=== PATIENT | female | born 1975 | race African-American/Black ===

== ENCOUNTER 2018-03-03 11:04 | Emergency (ER) | payer BC ==
[~2018-03-03] VITALS: Ht 157.5 cm; Wt 79.8 kg
[2018-03-03 12:20] VITALS: BP 126/87
== END 2018-03-03 13:30 | disposition home or self-care (01) ==
LOC: ER 11:04
DX: J40 Bronchitis, not specified as acute or chronic (principal); E11.9 Type 2 diabetes mellitus without complications; I10 Essential (primary) hypertension; Z90.710 Acquired absence of both cervix and uterus; Z90.89 Acquired absence of other organs
CPT/HCPCS: 82962

== ENCOUNTER 2019-02-11 12:18 | Emergency (ER) | payer BC ==
[~2019-02-11] VITALS: Ht 157.5 cm; Wt 80.7 kg
[2019-02-11 13:10] LABS: Basophils # (auto) 0 uL; Basophils % (auto) 0.7 % (0.0-2.0); Eosinophils # (auto) 0.1 uL; Eosinophils % (auto) 1.1 % (0.0-7.0); Hematocrit 43.7 % (36.0-46.0); Hemoglobin 14.8 g/dL (12.2-16.2); Lymphocytes # (auto) 2.3 uL; Mean Corpuscular Hemoglobin 29.9 pg (28.0-32.0); Mean Corpuscular Hgb Conc. 33.9 g/dL (32.0-36.0); Mean Corpuscular Volume 88.2 fL (80.0-100.0); Monocytes # (auto) 0.3 uL; Monocytes % (auto) 5.2 % (0.0-12.0); Neutrophils # (auto) 2.5 uL; Nucleated Red Blood Cells % 0.1 %; Platelet Count (auto) 302 10^3/uL (140-450); Red Blood Cells 4.96 10^6/uL (4.0-5.20); Red Cell Distribution Width 13.9 % (11.8-14.3); White Blood Cell 5.2 10^3/uL (4.4-10.8)
[2019-02-11 13:26] LABS: Potassium 3.7 mmol/L (3.5-5.1)
[2019-02-11 13:28] LABS: BUN/Creatinine Ratio 14.9
[2019-02-11 13:30] LABS: Bilirubin, Total 0.3 mg/dL (0.2-1.0); Total Protein 8.5 g/dL (6.4-8.2)
[2019-02-11 16:04] VITALS: BP 126/94
== END 2019-02-11 16:15 | disposition home or self-care (01) ==
LOC: ER 12:21
DX: R51 Headache (principal); R42 Dizziness and giddiness; R53.1 Weakness; R20.0 Anesthesia of skin; R53.83 Other fatigue; H57.13 Ocular pain, bilateral
CPT/HCPCS: 36415; 70450; 80053; 85025

== ENCOUNTER 2019-04-27 19:36 | Emergency (ER) | payer BC ==
[~2019-04-27] VITALS: Ht 157.5 cm; Wt 78.9 kg
[2019-04-27 21:12] LABS: Basophils # (auto) 0 uL; Basophils % (auto) 0.3 % (0.0-2.0); Eosinophils # (auto) 0 uL; Eosinophils % (auto) 0.6 % (0.0-7.0); Hematocrit 40.3 % (36.0-46.0); Hemoglobin 13.6 g/dL (12.2-16.2); Lymphocytes % (auto) 22.1 % (10.0-50.0); Mean Corpuscular Hemoglobin 30.3 pg (28.0-32.0); Mean Corpuscular Hgb Conc. 33.8 g/dL (32.0-36.0); Mean Corpuscular Volume 89.4 fL (80.0-100.0); Monocytes # (auto) 0.4 uL; Monocytes % (auto) 8.6 % (0.0-12.0); Neutrophils # (auto) 2.9 uL; Neutrophils % (auto) 68.4 % (37.0-80.0); Nucleated Red Blood Cells % 0.1 %; Platelet Count (auto) 210 10^3/uL (140-450); Red Blood Cells 4.51 10^6/uL (4.0-5.20); Red Cell Distribution Width 13.5 % (11.8-14.3); White Blood Cell 4.3 10^3/uL (4.4-10.8)
[2019-04-27 21:27] LABS: Alanine Aminotransferase 27 U/L (13-56); Albumin 3.6 g/dL (3.4-5.0); Anion Gap 6 (5-15); Aspartate Aminotransferase 23 U/L (15-37); Blood Urea Nitrogen 15 mg/dL (7-18); Calcium 8.6 mg/dL (8.5-10.1); Carbon Dioxide 28 mmol/L (21-32); Chloride 105 mmol/L (98-107); GFR African American 89 mL/min; GFR Non-African American 74 mL/min; Glucose 79 mg/dL (74-106); INR 1.07 (0.9-1.15); Magnesium 2.1 mg/dL (1.6-2.6); Partial Thromboplastin Time 29.6 sec (23.64-32.05); Potassium 3.5 mmol/L (3.5-5.1); Sodium 139 mmol/L (136-145)
[2019-04-27 21:32] LABS: Alkaline Phosphatase 64 U/L (45-117); Bilirubin, Total 0.3 mg/dL (0.2-1.0); Total Protein 8.1 g/dL (6.4-8.2)
[2019-04-27] MEDS ORDERED: IOHEXOL 350 MG/ML 100ML IJ ONE (22:50)
[2019-04-28 00:24] VITALS: BP 128/95
== END 2019-04-28 01:26 | disposition home or self-care (01) ==
LOC: ER 19:41
DX: J06.9 Acute upper respiratory infection, unspecified (principal); E11.9 Type 2 diabetes mellitus without complications; I10 Essential (primary) hypertension
CPT/HCPCS: 36415; 71046; 71275; 80053; 83735; 83880; 84484; 85025; 85379; 85610; 85730; 99284; Q9967

== ENCOUNTER 2020-08-11 09:02 | Inpatient (IN) | payer BC ==
[~2020-08-11] VITALS: Ht 157.5 cm; Wt 81.6 kg
[2020-08-11 09:43] LABS: Basophils # (auto) 0 10 ^3/uL (0-0.2); Basophils % (auto) 0.5 % (0.0-2.0); Eosinophils # (auto) 0 10 ^3/uL (0-0.8); Eosinophils % (auto) 0.2 % (0.0-7.0); Hematocrit 47.2 % (36.0-46.0); Hemoglobin 16.2 g/dL (12.2-16.2); Lymphocytes # (auto) 2.2 10 ^3/uL (0.4-5.4); Lymphocytes % (auto) 25.3 % (10.0-50.0); Mean Corpuscular Hemoglobin 30.8 pg (28.0-32.0); Mean Corpuscular Hgb Conc. 34.3 g/dL (32.0-36.0); Mean Corpuscular Volume 89.9 fL (80.0-100.0); Monocytes # (auto) 0.3 10 ^3/uL (0-1.3); Monocytes % (auto) 3.3 % (0.0-12.0); Neutrophils # (auto) 6.1 10 ^3/uL (1.6-8.6); Neutrophils % (auto) 70.7 % (37.0-80.0); Nucleated Red Blood Cells % 0.3 %; Platelet Count (auto) 262 10^3/uL (140-450); Red Blood Cells 5.25 10^6/uL (4.0-5.20); Red Cell Distribution Width 13.5 % (11.8-14.3); White Blood Cell 8.6 10^3/uL (4.4-10.8)
[2020-08-11 10:01] LABS: Albumin 3.7 g/dL (3.4-5.0); Anion Gap 13 (5-15); Blood Urea Nitrogen 13 mg/dL (7-18); Calcium 9.2 mg/dL (8.5-10.1); Carbon Dioxide 19 mmol/L (21-32); Chloride 104 mmol/L (98-107); Glucose 320 mg/dL (74-106); Potassium 4.2 mmol/L (3.5-5.1); Sodium 136 mmol/L (136-145)
[2020-08-11 10:06] LABS: Alanine Aminotransferase 26 U/L (13-56); Alkaline Phosphatase 79 U/L (45-117); Aspartate Aminotransferase 14 U/L (15-37); BUN/Creatinine Ratio 22.4; Bilirubin, Total 0.5 mg/dL (0.2-1.0); GFR African American 143 mL/min; GFR Non-African American 118 mL/min; Total Protein 7.5 g/dL (6.4-8.2)
[2020-08-11 10:25] LABS: Magnesium 1.8 mg/dL (1.6-2.6)
[2020-08-11] MEDS ORDERED: metroNIDAZOLE 500MG/100ML 100 ML IV ONE (10:30)
[2020-08-11] MEDS ORDERED: SODIUM CHLORIDE 0.9% 1,000 ML IV ONE ×2 (10:30)
[2020-08-11] MEDS ORDERED: PROMETHAZINE HCL 25 MG/ML 1ML IV PRN (11:00)
[2020-08-11] MEDS ORDERED: ACETAMINOPHEN 500 MG TAB PO PRN (11:00)
[2020-08-11] MEDS ORDERED: NITROGLYCERIN 0.4 MG SL TAB SL PRN (11:00)
[2020-08-11] MEDS ORDERED: FAMOTIDINE (10MG/ML) 2ML VL IV SCH (11:00)
[2020-08-11] MEDS ORDERED: MORPHINE SULF INJ 2 MG/ML SYRINGE 1ML IV PRN ×2 (11:00)
[2020-08-11] MEDS ORDERED: DEXTROSE (50%) 50ML SYRG IV PRN (11:00)
[2020-08-11] MEDS: SODIUM CHLORIDE 0.9% 1,000 ML IV SCH ×2 (11:00→22:11)
[2020-08-11] MEDS ORDERED: traMADol HCL 50 MG TAB PO PRN (11:00)
[2020-08-11] MEDS ORDERED: cefTRIAXone 1GM/50ML D5W 50 ML IV ONE (11:00)
[2020-08-11] MEDS ORDERED: TEMAZEPAM 15 MG CAP PO PRN (11:00)
[2020-08-11] MEDS: ACCU-CHEK COMFORT CURVE STRIP VI SCH ×3 (11:30→22:07)
[2020-08-11] MEDS: FAMOTIDINE (10MG/ML) 2ML VL IV SCH ×2 (11:30→22:10)
[2020-08-11] MEDS: InsuLIN REG 1unit/0.01ml Soln (100units/ml) SC SCH ×3 (11:30→22:07)
[2020-08-11 11:37] LABS: Urine Bacteria NONE SEEN /hpf (None Seen); Urine Blood Negative /uL (Negative); Urine Budding Yeast FEW /hpf (None Seen); Urine WBC 1 /hpf (0 - 5)
[2020-08-11 14:15] VITALS: BP 107/79
[2020-08-11 14:20] VITALS: BP 107/79
[2020-08-11] MEDS ORDERED: METF-370 PO (14:50)
[2020-08-11] MEDS ORDERED: LEV100T PO (14:50)
[2020-08-11 16:49] VITALS: BP 114/83
[2020-08-11 22:00] VITALS: BP 132/92
[2020-08-11] MEDS: metroNIDAZOLE 500MG/100ML 100 ML IV SCH (22:11)
[2020-08-11 23:00] LABS: Urine Bacteria NONE SEEN /hpf (None Seen); Urine Blood Negative /uL (Negative); Urine Specific Gravity 1.021 (1.001-1.035); Urine WBC 2 /hpf (0 - 5)
[2020-08-12 05:00] VITALS: BP 108/79
[2020-08-12 06:35] LABS: Basophils # (auto) 0 10 ^3/uL (0-0.2); Basophils % (auto) 0.3 % (0.0-2.0); Eosinophils # (auto) 0 10 ^3/uL (0-0.8); Hematocrit 38.2 % (36.0-46.0); Hemoglobin 13.1 g/dL (12.2-16.2); Lymphocytes # (auto) 1.6 10 ^3/uL (0.4-5.4); Lymphocytes % (auto) 39.4 % (10.0-50.0); Mean Corpuscular Hemoglobin 30.7 pg (28.0-32.0); Mean Corpuscular Hgb Conc. 34.2 g/dL (32.0-36.0); Mean Corpuscular Volume 89.8 fL (80.0-100.0); Monocytes # (auto) 0.2 10 ^3/uL (0-1.3); Monocytes % (auto) 5.9 % (0.0-12.0); Neutrophils # (auto) 2.2 10 ^3/uL (1.6-8.6); Neutrophils % (auto) 53.4 % (37.0-80.0); Nucleated Red Blood Cells % 0.1 %; Platelet Count (auto) 213 10^3/uL (140-450); Red Blood Cells 4.26 10^6/uL (4.0-5.20); Red Cell Distribution Width 13.3 % (11.8-14.3); White Blood Cell 4.1 10^3/uL (4.4-10.8)
[2020-08-12] MEDS: ACCU-CHEK COMFORT CURVE STRIP VI SCH ×4 (06:43→22:10)
[2020-08-12] MEDS: metroNIDAZOLE 500MG/100ML 100 ML IV SCH ×3 (06:43→22:12)
[2020-08-12] MEDS: SODIUM CHLORIDE 0.9% 1,000 ML IV SCH ×2 (06:43→18:50)
[2020-08-12] MEDS: InsuLIN REG 1unit/0.01ml Soln (100units/ml) SC SCH ×4 (06:45→22:10)
[2020-08-12 06:49] LABS: Potassium 3.8 mmol/L (3.5-5.1)
[2020-08-12 06:59] LABS: Albumin 3.1 g/dL (3.4-5.0); BUN/Creatinine Ratio 8.3; Bilirubin, Total 0.5 mg/dL (0.2-1.0); Calcium 8.3 mg/dL (8.5-10.1); Total Protein 6.5 g/dL (6.4-8.2)
[2020-08-12 08:33] VITALS: BP 138/100
[2020-08-12] MEDS: cefTRIAXone 1GM/50ML D5W 50 ML IV SCH (09:13)
[2020-08-12] MEDS: FAMOTIDINE (10MG/ML) 2ML VL IV SCH ×2 (10:18→22:12)
[2020-08-12 12:38] VITALS: BP 147/104
[2020-08-12] MEDS ORDERED: HYOSCYAMINE SULF 0.125 MG ODT TAB PO PRN (12:45)
[2020-08-12 16:40] VITALS: BP 127/92
[2020-08-12] MEDS ORDERED: LEVOTHYROXINE SODIUM 100 MCG TAB PO ONE (17:00)
[2020-08-12 22:00] VITALS: BP 133/95
[2020-08-12] MEDS: INSULIN LANTUS (GLARGINE) 1 /0.01ml (100units/ml) SC SCH (22:10)
[2020-08-13 05:00] VITALS: BP 123/81
[2020-08-13] MEDS: SODIUM CHLORIDE 0.9% 1,000 ML IV SCH (06:02)
[2020-08-13] MEDS: metroNIDAZOLE 500MG/100ML 100 ML IV SCH ×3 (06:02→21:40)
[2020-08-13] MEDS: LEVOTHYROXINE SODIUM 100 MCG TAB PO SCH (06:35)
[2020-08-13] MEDS: ACCU-CHEK COMFORT CURVE STRIP VI SCH ×4 (06:35→21:22)
[2020-08-13] MEDS: InsuLIN REG 1unit/0.01ml Soln (100units/ml) SC SCH ×4 (06:37→21:39)
[2020-08-13 09:00] VITALS: BP 119/91
[2020-08-13] MEDS: FAMOTIDINE (10MG/ML) 2ML VL IV SCH ×2 (11:12→21:40)
[2020-08-13] MEDS: cefTRIAXone 1GM/50ML D5W 50 ML IV SCH (11:13)
[2020-08-13 13:00] VITALS: BP 145/103
[2020-08-13 22:00] VITALS: BP 120/83
[2020-08-13] MEDS: INSULIN LANTUS (GLARGINE) 1 /0.01ml (100units/ml) SC SCH (22:18)
[2020-08-14 05:00] VITALS: BP 123/91
[2020-08-14] MEDS: LEVOTHYROXINE SODIUM 100 MCG TAB PO SCH (06:25)
[2020-08-14] MEDS: metroNIDAZOLE 500MG/100ML 100 ML IV SCH (06:25)
[2020-08-14] MEDS: ACCU-CHEK COMFORT CURVE STRIP VI SCH ×2 (06:42→11:31)
[2020-08-14] MEDS: InsuLIN REG 1unit/0.01ml Soln (100units/ml) SC SCH ×2 (06:43→11:31)
[2020-08-14 09:14] VITALS: BP 132/98
[2020-08-14] MEDS: FAMOTIDINE (10MG/ML) 2ML VL IV SCH (09:39)
[2020-08-14] MEDS: cefTRIAXone 1GM/50ML D5W 50 ML IV SCH (09:39)
[2020-08-14 12:49] VITALS: BP 133/96
== END 2020-08-14 16:48 | disposition home or self-care (01) | DRG 392 ==
LOC: ER 09:02 → TELE 09:03 → TELE-WESTW 14:06
PROVIDERS: ADMIT Internal Medicine; ATTEND Internal Medicine
DX: K52.9 Noninfective gastroenteritis and colitis, unspecified (principal); Z20.822 Contact with and (suspected) exposure to COVID-19; E66.9 Obesity, unspecified; E03.9 Hypothyroidism, unspecified; E11.65 Type 2 diabetes mellitus with hyperglycemia; I10 Essential (primary) hypertension; Z90.710 Acquired absence of both cervix and uterus; Z68.32 Body mass index [BMI] 32.0-32.9, adult; Z90.49 Acquired absence of other specified parts of digestive tract; Z79.899 Other long term (current) drug therapy
CPT/HCPCS: 36415; 74176; 80053; 81001; 82010; 82150; 82962; 83036; 83605; 83690; 83735; 84484; 85025; 87040; 87045; 87086; 87426; 87427; 87493; 93005; 96365; 96375; G0378; J0696; J1815; J3490

== ENCOUNTER → 2020-09-07 | Outpatient (CLI) | payer BC ==
[~2020-09-07] MED LIST: LEV100T PO; METF-370 PO
[2020-09-07 17:07] LABS: Cholesterol 97 mg/dL (< 200)
[2020-09-07 17:09] LABS: HDL Cholesterol 56 mg/dL (40-59); LDL Cholesterol 30 mg/dL (< 100); Triglycerides 106 mg/dL (< 150)
== END | disposition home or self-care (01) ==
LOC: LAB 16:18
PROVIDERS: ATTEND Internal Medicine
DX: E11.9 Type 2 diabetes mellitus without complications (principal)
CPT/HCPCS: 36415; 80061; 82043

== ENCOUNTER → 2020-09-21 | Outpatient (CLI) | payer BC ==
[2020-09-21 10:46] LABS: Basophils # (auto) 0 10 ^3/uL (0-0.2); Basophils % (auto) 0.4 % (0.0-2.0); Eosinophils # (auto) 0 10 ^3/uL (0-0.8); Eosinophils % (auto) 0.6 % (0.0-7.0); Hematocrit 42.1 % (36.0-46.0); Hemoglobin 14.6 g/dL (12.2-16.2); Lymphocytes # (auto) 1.8 10 ^3/uL (0.4-5.4); Lymphocytes % (auto) 35.5 % (10.0-50.0); Mean Corpuscular Hemoglobin 31.2 pg (28.0-32.0); Mean Corpuscular Hgb Conc. 34.6 g/dL (32.0-36.0); Mean Corpuscular Volume 90.1 fL (80.0-100.0); Monocytes # (auto) 0.3 10 ^3/uL (0-1.3); Monocytes % (auto) 5.2 % (0.0-12.0); Neutrophils % (auto) 58.3 % (37.0-80.0); Nucleated Red Blood Cells % 0.1 %; Platelet Count (auto) 260 10^3/uL (140-450); Red Blood Cells 4.67 10^6/uL (4.0-5.20); Red Cell Distribution Width 13.1 % (11.8-14.3); White Blood Cell 5.1 10^3/uL (4.4-10.8)
[2020-09-21 11:32] LABS: Albumin 3.8 g/dL (3.4-5.0); Calcium 9.2 mg/dL (8.5-10.1); Potassium 4.1 mmol/L (3.5-5.1)
[2020-09-21 11:35] LABS: BUN/Creatinine Ratio 18.3; Bilirubin, Total 0.4 mg/dL (0.2-1.0); Total Protein 7.9 g/dL (6.4-8.2)
== END | disposition home or self-care (01) ==
LOC: LAB 10:17
DX: E11.9 Type 2 diabetes mellitus without complications (principal); E03.9 Hypothyroidism, unspecified
CPT/HCPCS: 36415; 80053; 84439; 84443; 84479; 85025

== ENCOUNTER → 2020-09-21 | Outpatient (CLI) | payer BC | END | disposition home or self-care (01) | LOC: XY 08:35 | PROVIDERS: ATTEND Internal Medicine | DX: G45.9 Transient cerebral ischemic attack, unspecified (principal) | CPT/HCPCS: 93886 ==

== ENCOUNTER → 2020-09-27 | Outpatient (CLI) | payer BC | END | disposition home or self-care (01) | LOC: XYW 08:22 | PROVIDERS: ATTEND Internal Medicine | DX: I07.1 Rheumatic tricuspid insufficiency (principal); G45.9 Transient cerebral ischemic attack, unspecified | CPT/HCPCS: 93306 ==

== ENCOUNTER 2021-07-12 17:00 | Emergency (ER) | payer BC ==
[~2021-07-12] VITALS: Ht 157.5 cm; Wt 75.3 kg
[2021-07-12 18:44] LABS: Basophils # (auto) 0.1 10 ^3/uL (0-0.2); Basophils % (auto) 0.9 % (0.0-2.0); Eosinophils # (auto) 0 10 ^3/uL (0-0.8); Eosinophils % (auto) 0.5 % (0.0-7.0); Hematocrit 42.6 % (36.0-46.0); Hemoglobin 14.7 g/dL (12.2-16.2); Lymphocytes # (auto) 2.5 10 ^3/uL (0.4-5.4); Lymphocytes % (auto) 37.5 % (10.0-50.0); Mean Corpuscular Hemoglobin 30.2 pg (28.0-32.0); Mean Corpuscular Hgb Conc. 34.5 g/dL (32.0-36.0); Mean Corpuscular Volume 87.5 fL (80.0-100.0); Monocytes # (auto) 0.4 10 ^3/uL (0-1.3); Monocytes % (auto) 5.4 % (0.0-12.0); Neutrophils # (auto) 3.7 10 ^3/uL (1.6-8.6); Neutrophils % (auto) 55.7 % (37.0-80.0); Nucleated Red Blood Cells % 0.1 %; Red Blood Cells 4.87 10^6/uL (4.0-5.20); Red Cell Distribution Width 13.6 % (11.8-14.3); White Blood Cell 6.7 10^3/uL (4.4-10.8)
[2021-07-12 19:08] LABS: Albumin 4.2 g/dL (3.4-5.0); Calcium 9.6 mg/dL (8.5-10.1); Potassium 3.9 mmol/L (3.5-5.1)
[2021-07-12 19:13] LABS: Bilirubin, Total 0.4 mg/dL (0.2-1.0); Total Protein 8.2 g/dL (6.4-8.2)
[2021-07-12] MEDS ORDERED: IOHEXOL 350 MG/ML 100ML IJ ONE (19:15)
[2021-07-12 23:30] VITALS: BP 114/87
== END 2021-07-13 00:49 | disposition home or self-care (01) ==
LOC: ER 17:00
DX: R07.89 Other chest pain (principal); R06.09 Other forms of dyspnea
CPT/HCPCS: 36415; 71275; 80053; 83880; 84484; 85025; 93005; 99285; Q9967

== ENCOUNTER → 2021-07-16 | Outpatient (CLI) | payer BC ==
[2021-07-16 10:49] LABS: Free T3 2.47 pg/mL (2.3-4.2); Free T4 (Free Thyroxine) 1.38 ng/dL (0.89-1.76)
== END | disposition home or self-care (01) ==
LOC: LAB 09:02
PROVIDERS: ATTEND Internal Medicine Endocrinology, Diabetes & Metabolism
DX: E03.9 Hypothyroidism, unspecified (principal)
CPT/HCPCS: 36415; 82274; 84439; 84443; 84481

== ENCOUNTER → 2021-07-23 | Outpatient (CLI) | payer BC ==
[2021-07-23 06:36] LABS: Basophils # (auto) 0 10 ^3/uL (0-0.2); Basophils % (auto) 0.5 % (0.0-2.0); Eosinophils # (auto) 0.1 10 ^3/uL (0-0.8); Eosinophils % (auto) 1.1 % (0.0-7.0); Hematocrit 40.7 % (36.0-46.0); Lymphocytes # (auto) 2.5 10 ^3/uL (0.4-5.4); Lymphocytes % (auto) 44.5 % (10.0-50.0); Mean Corpuscular Hemoglobin 30.2 pg (28.0-32.0); Mean Corpuscular Hgb Conc. 34.4 g/dL (32.0-36.0); Mean Corpuscular Volume 87.8 fL (80.0-100.0); Monocytes # (auto) 0.3 10 ^3/uL (0-1.3); Monocytes % (auto) 5.1 % (0.0-12.0); Neutrophils # (auto) 2.8 10 ^3/uL (1.6-8.6); Neutrophils % (auto) 48.8 % (37.0-80.0); Nucleated Red Blood Cells % 0.2 %; Red Blood Cells 4.64 10^6/uL (4.0-5.20); Red Cell Distribution Width 13.2 % (11.8-14.3); White Blood Cell 5.7 10^3/uL (4.4-10.8)
[2021-07-23 06:54] LABS: Albumin 3.8 g/dL (3.4-5.0); Calcium 9.7 mg/dL (8.5-10.1); Potassium 4.2 mmol/L (3.5-5.1)
[2021-07-23 06:57] LABS: BUN/Creatinine Ratio 21.3; Bilirubin, Total 0.4 mg/dL (0.2-1.0); CRP High Sensitivity 0.24 mg/dL (< 0.3); Total Protein 7.5 g/dL (6.4-8.2)
== END ==
LOC: LAB 06:07
PROVIDERS: ATTEND Internal Medicine
DX: E11.9 Type 2 diabetes mellitus without complications (principal); Z00.00 Encounter for general adult medical examination without abnormal findings
CPT/HCPCS: 36415; 80053; 80061; 82043; 83036; 84443; 84481; 85025; 85652; 86141

== ENCOUNTER 2021-08-08 11:01 | Emergency (ER) | payer BC ==
[~2021-08-08] VITALS: Ht 157.5 cm; Wt 76.7 kg
[2021-08-08 11:54] LABS: Basophils # (auto) 0 10 ^3/uL (0-0.2); Basophils % (auto) 0.5 % (0.0-2.0); Eosinophils # (auto) 0 10 ^3/uL (0-0.8); Eosinophils % (auto) 1.1 % (0.0-7.0); Hematocrit 42.1 % (36.0-46.0); Hemoglobin 14.4 g/dL (12.2-16.2); Lymphocytes # (auto) 1.9 10 ^3/uL (0.4-5.4); Lymphocytes % (auto) 45.6 % (10.0-50.0); Mean Corpuscular Hemoglobin 30.2 pg (28.0-32.0); Mean Corpuscular Hgb Conc. 34.2 g/dL (32.0-36.0); Mean Corpuscular Volume 88.4 fL (80.0-100.0); Monocytes # (auto) 0.2 10 ^3/uL (0-1.3); Monocytes % (auto) 5.8 % (0.0-12.0); Nucleated Red Blood Cells % 0.3 %; Red Blood Cells 4.77 10^6/uL (4.0-5.20); Red Cell Distribution Width 13.3 % (11.8-14.3); White Blood Cell 4.2 10^3/uL (4.4-10.8)
[2021-08-08 12:21] LABS: Albumin 3.7 g/dL (3.4-5.0); BUN/Creatinine Ratio 11.6; Potassium 4.1 mmol/L (3.5-5.1)
[2021-08-08 12:24] LABS: Bilirubin, Total 0.7 mg/dL (0.2-1.0); Total Protein 7.5 g/dL (6.4-8.2)
[2021-08-08 16:38] LABS: Urine Bacteria FEW /hpf (None Seen); Urine Blood Negative /uL (Negative); Urine Mucus FEW (None Seen); Urine Specific Gravity 1.032 (1.001-1.035); Urine WBC 81 /hpf (0 - 5)
[2021-08-08] MEDS ORDERED: NITR-87 PO ×2 (16:55→18:24)
[2021-08-08 17:22] VITALS: BP 124/71
== END 2021-08-08 17:26 | disposition home or self-care (01) ==
LOC: ER 11:01
DX: E11.65 Type 2 diabetes mellitus with hyperglycemia (principal); I10 Essential (primary) hypertension; Z90.89 Acquired absence of other organs; Z90.49 Acquired absence of other specified parts of digestive tract
CPT/HCPCS: 36415; 80053; 81001; 81025; 85025; 93005

== ENCOUNTER 2022-01-12 12:42 | Emergency (ER) | payer BC ==
[~2022-01-12] VITALS: Ht 157.5 cm; Wt 75.0 kg
[~2022-01-12 12:42] MED LIST changes: +NITR-87 PO
[2022-01-12] MEDS ORDERED: KETOROLAC TROMETH 60MG/2ML VIAL IM ONE (13:15)
[2022-01-12 13:56] VITALS: BP 120/90
[2022-01-12] MEDS ORDERED: TRAM-297 PO (14:31)
[2022-01-12] MEDS ORDERED: PRED20TA2 PO (14:31)
== END 2022-01-12 14:43 | disposition home or self-care (01) ==
LOC: ER 12:42
DX: M54.31 Sciatica, right side (principal); E11.9 Type 2 diabetes mellitus without complications; I10 Essential (primary) hypertension; Z90.49 Acquired absence of other specified parts of digestive tract; Z90.89 Acquired absence of other organs; Z90.710 Acquired absence of both cervix and uterus
CPT/HCPCS: 93971; 96372; 99284; J1885

== ENCOUNTER → 2022-02-13 | Outpatient (CLI) | payer BC ==
[~2022-02-13] MED LIST changes: +PRED20TA2 PO; +TRAM-297 PO
[2022-02-13 10:53] LABS: Cholesterol 92 mg/dL (< 200); HDL Cholesterol 60 mg/dL (40-59); LDL Cholesterol 30 mg/dL (< 100); Triglycerides 76 mg/dL (< 150)
== END | disposition home or self-care (01) ==
LOC: LAB 09:46
PROVIDERS: ATTEND Internal Medicine
DX: E11.9 Type 2 diabetes mellitus without complications (principal); E78.5 Hyperlipidemia, unspecified
CPT/HCPCS: 36415; 80061; 83036

== ENCOUNTER → 2022-10-09 | Outpatient (CLI) | payer BC ==
[~2022-10-09] MED LIST changes: +CIPR-173 PO; +METR500T PO
[2022-10-09 08:44] LABS: Urine Bacteria FEW /hpf (None Seen); Urine Blood Negative /uL (Negative); Urine Mucus FEW (None Seen); Urine Specific Gravity 1.046 (1.001-1.035); Urine WBC 4 /hpf (0 - 5)
[2022-10-09 08:45] LABS: Basophils # (auto) 0 10 ^3/uL (0-0.2); Basophils % (auto) 0.7 % (0.0-2.0); Eosinophils # (auto) 0 10 ^3/uL (0-0.8); Eosinophils % (auto) 1.1 % (0.0-7.0); Hematocrit 45.8 % (36.0-46.0); Hemoglobin 15.4 g/dL (12.2-16.2); Lymphocytes # (auto) 2.3 10 ^3/uL (0.4-5.4); Lymphocytes % (auto) 53.3 % (10.0-50.0); Mean Corpuscular Hemoglobin 30.7 pg (28.0-32.0); Mean Corpuscular Hgb Conc. 33.6 g/dL (32.0-36.0); Mean Corpuscular Volume 91.5 fL (80.0-100.0); Monocytes # (auto) 0.3 10 ^3/uL (0-1.3); Monocytes % (auto) 7.2 % (0.0-12.0); Neutrophils # (auto) 1.6 10 ^3/uL (1.6-8.6); Neutrophils % (auto) 37.7 % (37.0-80.0); Nucleated Red Blood Cells % 0.1 %; Red Blood Cells 5.01 10^6/uL (4.0-5.20); Red Cell Distribution Width 13.2 % (11.8-14.3); White Blood Cell 4.4 10^3/uL (4.4-10.8)
[2022-10-09 09:07] LABS: Albumin 4.2 g/dL (3.4-5.0); Calcium 9.1 mg/dL (8.5-10.1); Potassium 3.7 mmol/L (3.5-5.1)
[2022-10-09 09:11] LABS: BUN/Creatinine Ratio 18.4 (10.0-20.0); Bilirubin, Total 0.5 mg/dL (0.2-1.0); Total Protein 8.1 g/dL (6.4-8.2)
== END | disposition home or self-care (01) ==
LOC: LAB 08:27
PROVIDERS: ATTEND Internal Medicine
DX: I10 Essential (primary) hypertension (principal); E11.9 Type 2 diabetes mellitus without complications; E78.00 Pure hypercholesterolemia, unspecified
CPT/HCPCS: 36415; 80053; 80061; 81001; 83036; 84443; 85025

== ENCOUNTER → 2023-04-24 | Outpatient (CLI) | payer BC | END | disposition home or self-care (01) | LOC: LAB 15:38 | PROVIDERS: ATTEND Internal Medicine | DX: E11.9 Type 2 diabetes mellitus without complications (principal); E78.5 Hyperlipidemia, unspecified | CPT/HCPCS: 36415; 83036; 84443 ==

== ENCOUNTER → 2023-05-26 | Outpatient (CLI) | payer OTHER | END | disposition home or self-care (01) | LOC: XYW 12:30 | PROVIDERS: ATTEND Internal Medicine | DX: I07.1 Rheumatic tricuspid insufficiency (principal); R00.2 Palpitations | CPT/HCPCS: 93306 ==

== ENCOUNTER → 2023-06-09 | Outpatient (CLI) | payer OTHER ==
[2023-06-09 16:22] LABS: Erythrocyte Sedimentation Rate 13 mm/hr (0-20)
== END | disposition home or self-care (01) ==
LOC: LAB 15:22
PROVIDERS: ATTEND Internal Medicine
DX: E11.9 Type 2 diabetes mellitus without complications (principal); E03.9 Hypothyroidism, unspecified; M54.2 Cervicalgia; M25.511 Pain in right shoulder; R00.2 Palpitations
CPT/HCPCS: 36415; 82550; 83036; 84443; 85652

== ENCOUNTER → 2023-12-31 | Outpatient (CLI) | payer OTHER ==
[~2023-12-31] MED LIST changes: -LEV100T PO; +LEVO-849 PO
== END | disposition home or self-care (01) ==
LOC: LAB 06:24
PROVIDERS: ATTEND Internal Medicine
DX: N39.0 Urinary tract infection, site not specified (principal)
CPT/HCPCS: 87086

== ENCOUNTER 2024-04-25 12:59 | Emergency (ER) | payer OTHER ==
[~2024-04-25] VITALS: Ht 152.4 cm; Wt 66.5 kg
--- NOTE | 2024-04-25 13:15 | ED.PDOC ---
History of Present Illness HPI Comments cough, congestion, body aches for 1 day Time Seen by MD: 13:07 Primary Care Provider: DENIES Allergies: Coded Allergies: NO KNOWN ALLERGIES (Unverified , 03/03/18) Home Meds Active Scripts Ciprofloxacin Hcl (Cipro) 500 Mg Tab, 500 MG PO BID for 7 Days, #14 TAB Prov:MAMTA GUAJARDO MD 04/02/22 Metronidazole (Flagyl) 500 Mg Tab, 500 MG PO BID for 7 Days, #14 TAB Prov:MAMTA GUAJARDO MD 04/02/22 Tramadol Hcl (Ultram) 50 Mg Tab, 1 TAB PO BID, #20 TAB Prov:CHRIS SANDOVAL 01/12/22 Prednisone (Prednisone) 20 Mg Tab, 40 MG PO DAILY, #20 MG Prov:CHRIS SANDOVAL 01/12/22 Nitrofurantoin Monohydrate Mac (Macrobid) 100 Mg Cap, 100 MG PO BID for 7 Days, #14 CAP Prov:MAMTA GUAJARDO MD 08/08/21 Nitrofurantoin Monohydrate Mac (Macrobid) 100 Mg Cap, 100 MG PO BID for 7 Days, #14 CAP Prov:JACQUI RANGEL DO 08/08/21 Reported Medications Levothyroxine Sodium (SYNTHROID TABLET) 100 Mcg Tb, 1 TAB PO DAILY, #30 TAB 5 Refills 08/11/20 Metformin Hydrochloride (Metformin Hcl) 500 Mg Tab, 500 MG PO DAILY for 30 Days, MG 08/11/20 Information Source: Patient, Spouse Mode of Arrival: Ambulatory Severity: Mild Timing: Days Duration: Since onset Past Medical History PAST MEDICAL HISTORY: DM, High Lipids, HTN, Thyroid Surgical History: Cholecystectomy, , Hysterectomy, Thyroidectomy CHORUS DANCER History: No Pertinent CHORUS DANCER History Family History Family History: Reviewed,noncontributory to illness Social History Smoker: Non-Smoker Alcohol: Denies ETOH Use Drugs: Denies Drug Use Lives In: Home Constitutional: denies: chills, diaphoresis, fatigue, fever, malaise, sweats, weakness, others EENTM: reports: nose congestion; denies: blurred vision, double vision, ear bleeding, ear discharge, ear drainage, ear pain, ear ringing, eye pain, eye redness, hearing loss, mouth pain, mouth swelling, nasal discharge, nose bleeding, nose pain, photophobia, tearing, throat pain, throat swelling, voice changes, others Respiratory: reports: cough; denies: hemoptysis, orthopnea, SOB at rest, shortness of breath, SOB with excertion, stridor, wheezing, others Cardiovascular: denies: chest pain, dizzy spells, diaphoresis, Dyspnea on exertion, edema, irregular heart beat, left arm pain, lightheadedness, palpitations, PND, syncope, others Gastrointestinal: denies: abdomen distended, abdominal pain, blood streaked bowels, constipated, diarrhea, dysphagia, difficulty swallowing, hematemesis, melena, nausea, poor appetite, poor fluid intake, rectal bleeding, rectal pain, vomiting, others Genitourinary: denies: abnormal vagina bleeding, burning, dyspareunia, dysuria, flank pain, frequency, hematuria, incontinence, pain, , vagina discharge, urgency, others Neurological: denies: dizziness, fainting, headache, left sided numbness, left sided weakness, numbness, paresthesia, pre-existing deficit, right sided numbness, right sided weakness, seizure, speech problems, tingling, tremors, weakness, others Musculoskeletal: reports: muscle pain; denies: back pain, gout, joint pain, j oint swelling, muscle stiffness, neck pain, others Integumetry: denies: bruises, change in color, change in hair/nails, dryness, laceration, lesions, lumps, rash, wounds, others Allergic/Immunocompromised: denies: Difficulty Healing, Frequent Infections, Hives, Itching, others Hematologic/Lymphatic: denies: anemia, blood clots, easy bleeding, easy bruising, swollen glands, others Endocrine: denies: excessive hunger, excessive sweating, excessive thirst, excessive urination, flushing, intolerance to cold, intolerance to heat, unexplained weight gain, unexplained weight loss, others Psychiatric: denies: anxiety, bipolar disorder, depression, hopeless, panic disorder, schizophrenia, sleepless, suicidal, others All Other Systems: Reviewed and Negative Physical Exam General Appearance: No Apparent Distress, Normal HEENT: Normal ENT Inspection, Pharynx Normal, TMs Normal Neck: Full Range of Motion, Non-Tender, Normal, Normal Inspection Respiratory: Chest Non-Tender, Lungs Clear, No Accessory Muscle Use, No Respiratory Distress, Normal Breath Sounds Cardiovascular: No Edema, No JVD, No Murmur, No Gallop, Normal Peripheral Pulses, Regular Rate/Rhythm Breast Exam: Deferred Gastrointestinal: No Organomegaly, Non Tender, No Pulsatile Mass, Normal Bowel Sounds, Soft Genitalia: Deferred Pelvic: Deferred Rectal: Deferred Extremities: No calf tenderness, Normal capillary refill, Normal inspection, Normal range of motion, Non-tender, No pedal edema Musculoskeletal : Apperance: Normal Neurologic: Alert, laborer chemical processing II-XII nml as Tested, No Motor Deficits, Normal Affect, Normal Mood, No Sensory Deficits Cerebellar Function: Normal Reflexes: Normal Skin: Dry, Normal Color, Warm Lymphatic: No Adenopathy Was a procedure done? Was a procedure done?: No Differential Dx Considerations may include: covid, influenza, pneumonia, bronchitis, other viral uri X-Ray, Labs, Meds, VS Vital Signs Date Time Temp Pulse Resp B/P (MAP) Pulse Ox O2 Delivery O2 Flow Rate FiO2 04/25/24 13:17 98.0 84 17 115/66 (82) 98 Lab Test 04/25/24 13:39 Range/Units Influenza Type A Antigen Negative Negative Influenza Type B Antigen Negative Negative SARS-CoV-2 Antigen (Rapid) Negative NEGATIVE Time of 1ST Reevaluation: 14:12 Reevaluation 1ST: Improved Patient Education/Counseling: Diagnosis, Treatment, Prognosis, Need For Follow Up Family Education/Counseling: Diagnosis, Treatment, Prognosis, Need For Follow Up Departure 1 Departure Time of Disposition: 14:12 Impression: Primary Impression: Viral syndrome Disposition: 01 HOME / SELF CARE / HOMELESS Condition: Good Discharged With: Spouse Critical Care Note Critical Care Time?: No Stability Stability form required: KT Whitmore MD Apr 25, 2024 13:15
[2024-04-25 14:10] LABS: COVID19 ANTIGEN SOFIA FIA NEGATIVE (NEGATIVE)
[2024-04-25 14:11] LABS: Rapid Influenza A Negative (Negative); Rapid Influenza B Negative (Negative)
[2024-04-25 14:43] VITALS: BP 116/66; PULSE 66; RESP 16; TEMP 98.6; O2SAT 96
== END 2024-04-25 14:45 | disposition home or self-care (01) ==
LOC: ER 12:59
DX: B34.9 Viral infection, unspecified (principal); E11.9 Type 2 diabetes mellitus without complications; I10 Essential (primary) hypertension; Z79.52 Long term (current) use of systemic steroids; Z79.84 Long term (current) use of oral hypoglycemic drugs; Z79.890 Hormone replacement therapy; Z90.49 Acquired absence of other specified parts of digestive tract; Z90.710 Acquired absence of both cervix and uterus; Z20.822 Contact with and (suspected) exposure to COVID-19
CPT/HCPCS: 36415; 87426; 87804

== ENCOUNTER 2024-05-05 20:46 | Emergency (ER) | payer OTHER ==
[~2024-05-05] VITALS: Ht 157.5 cm; Wt 63.6 kg
[2024-05-05] MEDS ORDERED: HYDROmorphone HCL 2 MG/ML VL/or syr IV ONE (21:00)
[2024-05-05] MEDS: ONDANSETRON HCL 4 MG/2 ML VIAL IV ONE (21:00)
--- NOTE | 2024-05-05 21:04 | ED.PDOC ---
GI ASSESSMENT HPI Comments 49 year old female brought in by EMS presents to the ED with a chief complaint of diffused abdominal pain onset yesterday. Patient states se was nathalia in this ED about 1 week ago, her symptoms had improved. Last night, patient began experiencing diffused abdominal pain, nausea, vomiting, diarrhea that worsens with movement. PMHx of HTN, DM, HLD. Denies chest pain, shortness of breath, constipation, dizziness, headache, blurry vision. No other symptoms or modifying factors present at this time. Chief Complaint: Abdominal Pain Time Seen by MD: 20:54 Primary Care Provider: gómez Reviewed Notes: Medications, Allergies Allergies: Coded Allergies: NO KNOWN ALLERGIES (Unverified , 03/03/18) Home Meds Active Scripts Dicyclomine Hcl (BENTYL CAPSULE) 10 Mg Cp, 1 CAP PO Q6HPRN PRN for 7 Days, #30 CAP 3 Refills Prov:MIN LOPES MD 05/05/24 Loperamide Hcl (Imodium) 2 Mg Cp, 2 MG PO Q4HP PRN for 7 Days, #30 CAP Prov:MIN LOPES MD 05/05/24 Ondansetron HCl (Ondansetron Hydrochloride) 8 Mg Tab, 8 MG PO Q6HP PRN for 7 Days, #28 TAB Prov:MIN LOPES MD 05/05/24 Ciprofloxacin Hcl (Cipro) 500 Mg Tab, 500 MG PO BID for 7 Days, #14 TAB Prov:MAMTA GUAJARDO MD 04/02/22 Metronidazole (Flagyl) 500 Mg Tab, 500 MG PO BID for 7 Days, #14 TAB Prov:MAMTA GUAJARDO MD 04/02/22 Tramadol Hcl (Ultram) 50 Mg Tab, 1 TAB PO BID, #20 TAB Prov:CHRIS SANDOVAL 01/12/22 Prednisone (Prednisone) 20 Mg Tab, 40 MG PO DAILY, #20 MG Prov:CHRIS SANDOVAL 01/12/22 Nitrofurantoin Monohydrate Mac (Macrobid) 100 Mg Cap, 100 MG PO BID for 7 Days, #14 CAP Prov:MAMTA GUAJARDO MD 08/08/21 Nitrofurantoin Monohydrate Mac (Macrobid) 100 Mg Cap, 100 MG PO BID for 7 Days, #14 CAP Prov:JACQUI RANGEL DO 08/08/21 Reported Medications Levothyroxine Sodium (SYNTHROID TABLET) 100 Mcg Tb, 1 TAB PO DAILY, #30 TAB 5 Refills 08/11/20 Metformin Hydrochloride (Metformin Hcl) 500 Mg Tab, 500 MG PO DAILY for 30 Days, MG 08/11/20 Information Source: Patient, Emergency Med Personnel Mode of Arrival: EMS Timing: Days Duration: Since onset Prehospital treatment: None Quality: Sharp Severity: Moderate Recent: None Recent Hx of: None Pain Location: Diffuse Modifying Factors: Movement Associated sign and symptoms: Nausea, Vomiting, Diarrhea, Abdominal Pain Past Medical History PAST MEDICAL HISTORY: DM, High Lipids, HTN, Thyroid Surgical History: Cholecystectomy, , Hysterectomy, Thyroidectomy FINANCIAL SERVICE PROFESSIONAL History: No Pertinent FINANCIAL SERVICE PROFESSIONAL History Family History Family History: Reviewed,noncontributory to illness Social History Smoker: Non-Smoker Alcohol: Denies ETOH Use Drugs: Denies Drug Use Lives In: Home Constitutional: denies: chills, diaphoresis, fatigue, fever, malaise, sweats, weakness, others EENTM: denies: blurred vision, double vision, ear bleeding, ear discharge, ear drainage, ear pain, ear ringing, eye pain, eye redness, hearing loss, mouth pain, mouth swelling, nasal discharge, nose bleeding, nose congestion, nose pain, photophobia, tearing, throat pain, throat swelling, voice changes, others Respiratory: denies: cough, hemoptysis, orthopnea, SOB at rest, shortness of breath, SOB with excertion, stridor, wheezing, others Cardiovascular: denies: chest pain, dizzy spells, diaphoresis, Dyspnea on exertion, edema, irregular heart beat, left arm pain, lightheadedness, palpitations, PND, syncope, others Gastrointestinal: reports: abdominal pain, diarrhea, nausea, vomiting; denies: abdomen distended, blood streaked bowels, constipated, dysphagia, difficulty swallowing, hematemesis, melena, poor appetite, poor fluid intake, rectal bleeding, rectal pain, others Genitourinary: denies: abnormal vagina bleeding, burning, dyspareunia, dysuria, flank pain, frequency, hematuria, incontinence, pain, , vagina discharge, urgency, others Neurological: denies: dizziness, fainting, headache, left sided numbness, left sided weakness, numbness, paresthesia, pre-existing deficit, right sided numb ness, right sided weakness, seizure, speech problems, tingling, tremors, weakness, others Musculoskeletal: denies: back pain, gout, joint pain, joint swelling, muscle pain, muscle stiffness, neck pain, others Integumetry: denies: bruises, change in color, change in hair/nails, dryness, laceration, lesions, lumps, rash, wounds, others Allergic/Immunocompromised: denies: Difficulty Healing, Frequent Infections, Hives, Itching, others Hematologic/Lymphatic: denies: anemia, blood clots, easy bleeding, easy bruising, swollen glands, others Endocrine: denies: excessive hunger, excessive sweating, excessive thirst, excessive urination, flushing, intolerance to cold, intolerance to heat, unexplained weight gain, unexplained weight loss, others Psychiatric: denies: anxiety, bipolar disorder, depression, hopeless, panic disorder, schizophrenia, sleepless, suicidal, others All Other Systems: Reviewed and Negative Physical Exam General Appearance: No Apparent Distress, Normal HEENT: Normal ENT Inspection, Pharynx Normal, TMs Normal Neck: Full Range of Motion, Non-Tender, Normal, Normal Inspection Respiratory: Chest Non-Tender, Lungs Clear, No Accessory Muscle Use, No Respiratory Distress, Normal Breath Sounds Cardiovascular: No Edema, No JVD, No Murmur, No Gallop, Normal Peripheral Pulses, Regular Rate/Rhythm Breast Exam: Deferred Gastrointestinal: No Organomegaly, Non Tender, No Pulsatile Mass, Normal Bowel Sounds, Soft Genitalia: Deferred Pelvic: Deferred Rectal: Deferred Extremities: No calf tenderness, Normal capillary refill, Normal inspection, Normal range of motion, Non-tender, No pedal edema Musculoskeletal : Apperance: Normal Neurologic: Alert, transplant worker II-XII nml as Tested, No Motor Deficits, Normal Affect, Normal Mood, No Sensory Deficits Cerebellar Function: Normal Reflexes: Normal Skin: Dry, Normal Color, Warm Lymphatic: No Adenopathy Was a procedure done? Was a procedure done?: No GI differential Dx Differential Diagnosis: Appendicitis, Diverticular disease, Gastritis/PUD, Gastroenteritis, GI hemorrhage, Inflammatory BD, UTI, Other X-Ray, Labs, Meds, VS Vital Signs Date Time Temp Pulse Resp B/P (MAP) Pulse Ox O2 Delivery O2 Flow Rate FiO2 05/06/24 00:05 80 16 105/73 (84) 99 05/05/24 21:40 97.8 94 16 98/73 (81) 98 97.8 05/05/24 20:50 97.6 99 20 104/76 (85) 98 Lab Test 05/05/24 21:45 Range/Units White Blood Count 9.7 4.4-10.8 10^3/uL Red Blood Count 5.12 4.0-5.20 10^6/uL Hemoglobin 15.6 12.2-16.2 g/dL Hematocrit 47.2 H 36.0-46.0 % Mean Corpuscular Volume 92.2 80.0-100.0 fL Mean Corpuscular Hemoglobin 30.5 28.0-32.0 pg Mean Corpuscular Hemoglobin Concent 33.1 32.0-36.0 g/dL Red Cell Distribution Width 13.9 11.8-14.3 % Platelet Count 287 140-450 10^3/uL Mean Platelet Volume 8.1 6.9-10.8 fL Neutrophils (%) (Auto) 83.9 H 37.0-80.0 % Lymphocytes (%) (Auto) 12.7 10.0-50.0 % Monocytes (%) (Auto) 3.2 0.0-12.0 % Eosinophils (%) (Auto) 0.0 0.0-7.0 % Basophils (%) (Auto) 0.2 0.0-2.0 % Neutrophils # (Auto) 8.1 1.6-8.6 10 ^3/uL Lymphocytes # (Auto) 1.2 0.4-5.4 10 ^3/uL Monocytes # (Auto) 0.3 0-1.3 10 ^3/uL Eosinophils # (Auto) 0 0-0.8 10 ^3/uL Basophils # (Auto) 0 0-0.2 10 ^3/uL Nucleated Red Blood Cells 0.0 % Sodium Level 135 L 136-145 mmol/L Potassium Level 4.0 3.5-5.1 mmol/L Chloride Level 107 98-107 mmol/L Carbon Dioxide Level 22 20-31 mmol/L Anion Gap 6 5-15 Blood Urea Nitrogen 16 9-23 mg/dL Creatinine 0.93 0.550-1.02 mg/dL Glomerular Filtration Rate Calc 74 >90 mL/min BUN/Creatinine Ratio 17.2 10.0-20.0 Serum Glucose 115 H 74-106 mg/dL Calcium Level 9.2 8.7-10.4 mg/dL Total Bilirubin 0.9 0.2-1.0 mg/dL Aspartate Amino Transferase (AST) 14 13-40 U/L Alanine Aminotransferase (ALT) 25 7-40 U/L Alkaline Phosphatase 75 46-116 U/L Total Protein 6.4 5.7-8.2 g/dL Albumin 3.8 3.2-4.8 g/dL Lipase 49 12-53 U/L Current Medications Medications (Trade) Dose Ordered Sig/Dave Route Start Time Stop Time Status Last Admin Sodium Chloride 1,000 ml @ 1,000 mls/hr Q1H ONCE IVB 05/05/24 21:00 05/05/24 21:59 DC 05/05/24 21:44 Sodium Chloride 1,000 ml @ 1,000 mls/hr Q1H ONCE IVB 05/05/24 22:15 05/05/24 23:14 DC 05/05/24 23:18 Ketorolac Tromethamine (Toradol Injection) 15 mg ONCE ONCE IV 05/05/24 22:15 05/05/24 22:16 DC 05/05/24 22:10 Loperamide HCl (Imodium Capsule) 4 mg ONCE ONCE PO 05/05/24 22:45 05/05/24 22:46 DC 05/05/24 23:17 [place] [id number] Ph: [phone] DIAGNOSTIC IMAGING Diagnostic Imaging Report : [id number] Signed PATIENT: JOSUE HUFFMAN SACCT: [id number] UNIT: [id number] : 1975 LOC: ER ROOM / BED: / AGE / SEX: 49 / F ADM STATUS: REG ER SERVICE 55 ORDERING PHYSICIAN: MIN LOPES MD PROCEDURE(s): ABPLIV - CT AB PEL WITH IV CON ONLY REASON: abd pain ORDER NUMBER(s): [id number], ACCESSION NUMBER(s): [id number] Exam: CT CT AB PEL WITH IV CON ONLY History: abd pain Comparison Study: None available at time of dictation. Contrast: Type of contrast: Omnipaque 300 Contrast injected: 100 mL Contrast wasted: 0 TECHNIQUE: A digital occasional babysitter image was obtained. During the uneventful, intravenous administration of contrast material, multislice data acquisition was obtained through the abdomen and pelvis. The data set was subsequently reconstructed into axial images. Images were reviewed on a work station using a combination of axial and multiplanar using a variety of window levels and settings. Radiation Dose Information: CT Dose: CTDI volume is 12.98 mGy. Dose-length product is 737.25 mGy*cm FINDINGS: Lung Bases: No acute or significant lung base finding. Normal heart size. No pleural or pericardial effusion. Liver: The liver is normal in size. No focal lesions. Normal hepatic vascular enhancement. Gallbladder and Biliary Tree: Unremarkable Spleen: Unremarkable Pancreas: The pancreas is normal in appearance without focal lesions or abnormal enhancement. Adrenal Glands: Unremarkable Kidneys: Kidneys demonstrate normal symmetric enhancement without focal lesions, calculi or hydronephrosis. Bladder: Unremarkable Bowel: The stomach is grossly normal in appearance. Mucosal thickening is noted primarily in the ileum to a lesser degree in the jejunum. The bowel wall in the ileum measures 7-9 mm. There is mucosal thickening of the distal transverse and left colon raising question of colitis. The appendix is not visualized; however, no secondary findings of acute appendicitis identified. Ascites: Small amount of ascites around the liver and spleen and in the pelvis. Lymphadenopathy: No mesenteric, retroperitoneal or periportal lymphadenopathy. Abdominal Wall and Mesentery: Unremarkable. Vasculature: The visualized abdominal aorta is normal in size and caliber. Abdominal and pelvic vessels demonstrate normal enhancement. Opacified Pelvic Organs: Unremarkable Musculoskeletal: No aggressive focal bony lesions, acute fractures or dislocation. Soft tissues: Unremarkable. IMPRESSION: 1. Mucosal thickening of the small bowel mostly in the ileum to a lesser degree in the jejunum. Measures between 7-9 mm in the ileum. There is scattered small amount of ascites around the liver and spleen and in the mesentery and pelvis. 2. Mild mucosal thickening in the distal transverse descending colon. This appears to terminate at the junction with the sigmoid colon. 3. Vascular opacification of the abdominal aorta appears normal as to the mesenteric vessels. All CT scans at this medical facility are performed using dose modulation techniques as appropriate to a performed exam including the following: Automated exposure control was utilized; adjustment of the MA and/or KV according to patient size; and use of iterative reconstruction technique. HS:Y ATED BY: JASON HERBERT Jr., DO DICTATED DATE/TIME: 05/05/242220 SIGNED BY: JASON HERBERT Jr., SIGNED DATE/TIME: 05/05/242220 CC: Time of 1ST Reevaluation: 21:24 Reevaluation 1ST: Improved Patient Education/Counseling: Diagnosis, Treatment Family Education/Counseling: No Family Present Additional Information I reviewed the following notes from patient's past medical encounters: The following tests were ordered, and results were reviewed by me: EKG, CBC, CMP, BETA HCG, LIPASE, UA, TYPE AND SCREEN, PROTHROMBIN TIME W/ INR, AMMONIA, CT AB PELVIS W WO CON Additional Information was gathered from interviewing the following independent historians: EMS I reviewed and agreed with the following test results read by other providers: CT AB PELVIS W WO CON I discussed treatment and results with medical personnel and: PATIENT Departure 1 Departure Time of Disposition: 23:00 Impression: Primary Impression: Vomiting and diarrhea Additional Impressions: Dehydration Acute abdominal pain Disposition: HOME / SELF CARE / HOMELESS Condition: Stable e-Prescriptions Dicyclomine Hcl (BENTYL CAPSULE) 10 Mg Cp 1 CAP PO Q6HPRN PRN for 7 Days, #30 CAP 3 Refills Prov: MIN LOPES MD 05/05/24 Loperamide Hcl (Imodium) 2 Mg Cp 2 MG PO Q4HP PRN for 7 Days, #30 CAP Prov: MIN LOPES MD 05/05/24 Ondansetron HCl (Ondansetron Hydrochloride) 8 Mg Tab 8 MG PO Q6HP PRN for 7 Days, #28 TAB Prov: MIN LOPES MD 05/05/24 Discharged With: Self Critical Care Note Critical Care Time?: No Stability Stability form required: No I personally scribed for MIN LOPES MD ([email or web address]) on 05/05/24 at 21:04. Electronically submitted by Caty Olivera ([email or web address]). I personally scribed for MIN LOPES MD ([email or web address]) on 05/06/24 at 00:03. Electronically submitted by Caty Olivera ([email or web address]). MIN LOPES MD May 05, 2024 21:04
[2024-05-05] MEDS: IOHEXOL 300 MG/ML 100ML BOTTLE IJ ONE (21:14)
[2024-05-05 21:40] VITALS: TEMP 97.8
[2024-05-05] MEDS: SODIUM CHLORIDE 0.9% 1,000 ML IVB ONE ×2 (21:44→23:18)
[2024-05-05 21:56] LABS: Basophils # (auto) 0 10 ^3/uL (0-0.2); Basophils % (auto) 0.2 % (0.0-2.0); Eosinophils # (auto) 0 10 ^3/uL (0-0.8); Hematocrit 47.2 % (36.0-46.0); Hemoglobin 15.6 g/dL (12.2-16.2); Lymphocytes # (auto) 1.2 10 ^3/uL (0.4-5.4); Lymphocytes % (auto) 12.7 % (10.0-50.0); Mean Corpuscular Hemoglobin 30.5 pg (28.0-32.0); Mean Corpuscular Hgb Conc. 33.1 g/dL (32.0-36.0); Mean Corpuscular Volume 92.2 fL (80.0-100.0); Monocytes # (auto) 0.3 10 ^3/uL (0-1.3); Monocytes % (auto) 3.2 % (0.0-12.0); Neutrophils # (auto) 8.1 10 ^3/uL (1.6-8.6); Neutrophils % (auto) 83.9 % (37.0-80.0); Platelet Count (auto) 287 10^3/uL (140-450); Red Blood Cells 5.12 10^6/uL (4.0-5.20); Red Cell Distribution Width 13.9 % (11.8-14.3); White Blood Cell 9.7 10^3/uL (4.4-10.8)
[2024-05-05] MEDS: KETOROLAC TROMETH 30 MG/ML 1ML VIAL IV ONE (22:10)
[2024-05-05 22:15] LABS: Alanine Aminotransferase 25 U/L (7-40); Albumin 3.8 g/dL (3.2-4.8); Alkaline Phosphatase 75 U/L (46-116); Anion Gap 6 (5-15); Aspartate Aminotransferase 14 U/L (13-40); BUN/Creatinine Ratio 17.2 (10.0-20.0); Bilirubin, Total 0.9 mg/dL (0.2-1.0); Blood Urea Nitrogen 16 mg/dL (9-23); Calcium 9.2 mg/dL (8.7-10.4); Carbon Dioxide 22 mmol/L (20-31); Lipase 49 U/L (12-53); Total Protein 6.4 g/dL (5.7-8.2)
[2024-05-05 22:16] LABS: Chloride 107 mmol/L (98-107); Glucose 115 mg/dL (74-106); Sodium 135 mmol/L (136-145)
--- NOTE | 2024-05-05 22:23 | DVH ---
Exam: CT CT AB PEL WITH IV CON ONLY History: abd pain Comparison Study: None available at time of dictation. Contrast: Type of contrast: Omnipaque 300 Contrast injected: 100 mL Contrast wasted: 0 TECHNIQUE: A digital harbor police lieutenant image was obtained. During the uneventful, intravenous administration of c ontrast material, multislice data acquisition was obtained through the abdomen and pelvis. The data s et was subsequently reconstructed into axial images. Images were reviewed on a work station using a c ombination of axial and multiplanar using a variety of window levels and settings. Radiation Dose Information: CT Dose: CTDI volume is 12.98 mGy. Dose-length product is 737.25 mGy*cm FINDINGS: Lung Bases: No acute or significant lung base finding. Normal heart size. No pleural or pericardial effusion. Liver: The liver is normal in size. No focal lesions. Normal hepatic vascular enhancement. Gallbladder and Biliary Tree: Unremarkable Spleen: Unremarkable Pancreas: The pancreas is normal in appearance without focal lesions or abnormal enhancement. Adrenal Glands: Unremarkable Kidneys: Kidneys demonstrate normal symmetric enhancement without focal lesions, calculi or hydroneph rosis. Bladder: Unremarkable Bowel: The stomach is grossly normal in appearance. Mucosal thickening is noted primarily in the ile um to a lesser degree in the jejunum. The bowel wall in the ileum measures 7-9 mm. There is mucosal thickening of the distal transverse and left colon raising question of colitis. The appendix is not visualized; however, no secondary findings of acute appendicitis identified. Ascites: Small amount of ascites around the liver and spleen and in the pelvis. Lymphadenopathy: No mesenteric, retroperitoneal or periportal lymphadenopathy. Abdominal Wall and Mesentery: Unremarkable. Vasculature: The visualized abdominal aorta is normal in size and caliber. Abdominal and pelvic vess els demonstrate normal enhancement. Opacified Pelvic Organs: Unremarkable Musculoskeletal: No aggressive focal bony lesions, acute fractures or dislocation. Soft tissues: Unremarkable. IMPRESSION: 1. Mucosal thickening of the small bowel mostly in the ileum to a lesser degree in the jejunum. Measu res between 7-9 mm in the ileum. There is scattered small amount of ascites around the liver and sple en and in the mesentery and pelvis. 2. Mild mucosal thickening in the distal transverse descending colon. This appears to terminate at th e junction with the sigmoid colon. 3. Vascular opacification of the abdominal aorta appears normal as to the mesenteric vessels. All CT scans at this medical facility are performed using dose modulation techniques as appropriate t o a performed exam including the following: Automated exposure control was utilized; adjustment of th e MA and/or KV according to patient size; and use of iterative reconstruction technique. HS:Y
[2024-05-05] MEDS ORDERED: DICY10CA PO (22:38)
[2024-05-05] MEDS ORDERED: ONDA-180 PO (22:38)
[2024-05-05] MEDS ORDERED: LOPE2CAP16 PO (22:38)
[2024-05-05] MEDS: LOPERAMIDE HCL 2 MG CAP/TAB PO ONE (23:17)
[2024-05-06 00:05] VITALS: BP 105/73; PULSE 80; RESP 16; O2SAT 99
== END 2024-05-06 00:16 | disposition home or self-care (01) ==
LOC: EDBD 20:46 → ER 20:46
DX: R11.2 Nausea with vomiting, unspecified (principal); R19.7 Diarrhea, unspecified; E86.0 Dehydration; R10.84 Generalized abdominal pain; E11.9 Type 2 diabetes mellitus without complications; I10 Essential (primary) hypertension; E78.5 Hyperlipidemia, unspecified; E03.9 Hypothyroidism, unspecified; Z90.49 Acquired absence of other specified parts of digestive tract; Z79.899 Other long term (current) drug therapy; Z90.89 Acquired absence of other organs; Z90.710 Acquired absence of both cervix and uterus; Z98.890 Other specified postprocedural states
CPT/HCPCS: 36415; 74177; 80053; 83690; 85025; 96361; 96374; 99285; J1171; J1885; J7030; Q9967; J2405

== ENCOUNTER 2024-06-17 11:34 | Inpatient (IN) | payer OTHER ==
[~2024-06-17] VITALS: Ht 157.5 cm; Wt 68.0 kg
[~2024-06-17 11:34] MED LIST changes: +DICY10CA PO; +LOPE2CAP16 PO; +ONDA-180 PO
--- NOTE | 2024-06-17 11:56 | ED.PDOC ---
HPI Comments 49 y/o F, presents to the ED for CC chest pain. Patient states, that she was at [facility] for an orthopedic consult when she began to experience sudden left sided non-radiating chest pain. Patient endorses, new onset symptoms of lightheadedness and shortness of breath x15 minutes. Patient states current chest pain to be 10/10. Patient denies fever, chills, fatigue, weakness or N/V/D. No other symptoms or modifying factors at this time. Time Seen by MD: 11:40 Primary Care Provider: Dr. Lucas Reviewed Notes: Nurses Notes, Medications, Allergies Allergies: Coded Allergies: NO KNOWN ALLERGIES (Unverified , 03/03/18) Home Meds Active Scripts Dicyclomine Hcl (BENTYL CAPSULE) 10 Mg Cp, 1 CAP PO Q6HPRN PRN for 7 Days, #30 CAP 3 Refills Prov:MIN LOPES MD 05/05/24 Loperamide Hcl (Imodium) 2 Mg Cp, 2 MG PO Q4HP PRN for 7 Days, #30 CAP Prov:MIN LOPES MD 05/05/24 Ondansetron HCl (Ondansetron Hydrochloride) 8 Mg Tab, 8 MG PO Q6HP PRN for 7 Days, #28 TAB Prov:MIN LOPES MD 05/05/24 Ciprofloxacin Hcl (Cipro) 500 Mg Tab, 500 MG PO BID for 7 Days, #14 TAB Prov:MAMTA GUAJARDO MD 04/02/22 Metronidazole (Flagyl) 500 Mg Tab, 500 MG PO BID for 7 Days, #14 TAB Prov:MAMTA GUAJARDO MD 04/02/22 Tramadol Hcl (Ultram) 50 Mg Tab, 1 TAB PO BID, #20 TAB Prov:CHRIS SANDOVAL 01/12/22 Prednisone (Prednisone) 20 Mg Tab, 40 MG PO DAILY, #20 MG Prov:CHRIS SANDOVAL 01/12/22 Nitrofurantoin Monohydrate Mac (Macrobid) 100 Mg Cap, 100 MG PO BID for 7 Days, #14 CAP Prov:MAMTA GUAJARDO MD 08/08/21 Nitrofurantoin Monohydrate Mac (Macrobid) 100 Mg Cap, 100 MG PO BID for 7 Days, #14 CAP Prov:JACQUI RANGEL DO 08/08/21 Reported Medications Levothyroxine Sodium (SYNTHROID TABLET) 100 Mcg Tb, 1 TAB PO DAILY, #30 TAB 5 Refills 08/11/20 Metformin Hydrochloride (Metformin Hcl) 500 Mg Tab, 500 MG PO DAILY for 30 Days, MG 08/11/20 Information Source: Patient Mode of Arrival: Wheelchair Severity: Moderate Timing: Minutes Duration: Since onset Prehospital treatment: None Location: Chest (L) Radiation: No Radiation Quality: Sharp Onset: At Rest Cardiac Risk Factors: HTN, Diabetes PE Risk Factors: None History of: None Associated Signs and Symptoms: SOB Past Medical History PAST MEDICAL HISTORY: Cancer, DM, High Lipids, HTN, Thyroid Surgical History: Cholecystectomy, , Hysterectomy, Thyroidectomy FOREST PATHOLOGIST History: No Pertinent FOREST PATHOLOGIST History Family History Family History: Reviewed,noncontributory to illness Social History Smoker: Non-Smoker Alcohol: Denies ETOH Use Drugs: Denies Drug Use Lives In: Home Constitutional: denies: chills, diaphoresis, fatigue, fever, malaise, sweats, weakness, others EENTM: denies: blurred vision, double vision, ear bleeding, ear discharge, ear drainage, ear pain, ear ringing, eye pain, eye redness, hearing loss, mouth pain, mouth swelling, nasal discharge, nose bleeding, nose congestion, nose pain, photophobia, tearing, throat pain, throat swelling, voice changes, others Respiratory: reports: shortness of breath; denies: cough, hemoptysis, orthopnea, SOB at rest, SOB with excertion, stridor, wheezing, others Cardiovascular: reports: chest pain; denies: dizzy spells, diaphoresis, Dyspnea on exertion, edema, irregular heart beat, left arm pain, lightheadedness, palpi tations, PND, syncope, others Gastrointestinal: denies: abdomen distended, abdominal pain, blood streaked bowels, constipated, diarrhea, dysphagia, difficulty swallowing, hematemesis, melena, nausea, poor appetite, poor fluid intake, rectal bleeding, rectal pain, vomiting, others Genitourinary: denies: abnormal vagina bleeding, burning, dyspareunia, dysuria, flank pain, frequency, hematuria, incontinence, pain, , vagina discharge, urgency, others Neurological: denies: dizziness, fainting, headache, left sided numbness, left sided weakness, numbness, paresthesia, pre-existing deficit, right sided numbness, right sided weakness, seizure, speech problems, tingling, tremors, weakness, others Musculoskeletal: denies: back pain, gout, joint pain, joint swelling, muscle pain, muscle stiffness, neck pain, others Integumetry: denies: bruises, change in color, change in hair/nails, dryness, laceration, lesions, lumps, rash, wounds, others Allergic/Immunocompromised: denies: Difficulty Healing, Frequent Infections, Hives, Itching, others Hematologic/Lymphatic: denies: anemia, blood clots, easy bleeding, easy bru ising, swollen glands, others Endocrine: denies: excessive hunger, excessive sweating, excessive thirst, e xcessive urination, flushing, intolerance to cold, intolerance to heat, unexplained weight gain, unexplained weight loss, others Psychiatric: denies: anxiety, bipolar disorder, depression, hopeless, panic disorder, schizophrenia, sleepless, suicidal, others All Other Systems: Reviewed and Negative Physical Exam General Appearance: Moderate Distress HEENT: Normal ENT Inspection, Pharynx Normal, TMs Normal Neck: Full Range of Motion, Non-Tender, Normal, Normal Inspection Respiratory: Chest Non-Tender, Lungs Clear, No Accessory Muscle Use, No Respiratory Distress, Normal Breath Sounds Cardiovascular: No Edema, No JVD, No Murmur, No Gallop, Normal Peripheral Pulses, Regular Rate/Rhythm Breast Exam: Deferred Gastrointestinal: LUQ, No Organomegaly, No Pulsatile Mass, Normal Bowel Sounds, Soft, Tenderness Genitalia: Deferred Pelvic: Deferred Rectal: Deferred Extremities: No calf tenderness, Normal capillary refill, Normal inspection, Normal range of motion, Non-tender, No pedal edema Musculoskeletal : Apperance: Normal Neurologic: Alert, sign writer hand II-XII nml as Tested, No Motor Deficits, Normal Affect, Normal Mood, No Sensory Deficits Cerebellar Function: Normal Reflexes: Normal Skin: Dry, Normal Color, Warm Lymphatic: No Adenopathy EKG EKG : Pulse Rate (adult): 81 Cardiac Rhythm: NSR Block: None Hypertrophy: None ST: Normal Was a procedure done? Was a procedure done?: No CP Differential Dx Differential Diagnosis: N/A Differential Diagnosis: HTN Essential, HTN Accelerated Differential Diagnosis: Angina, Chest Wall Pain, Cholelithiasis, Costochondritis X-Ray, Labs, Meds, VS Vital Signs Date Time Temp Pulse Resp B/P (MAP) Pulse Ox O2 Delivery O2 Flow Rate FiO2 06/17/24 19:22 98.0 69 16 138/99 (112) 98 98.0 06/17/24 16:48 80 18 130/80 06/17/24 16:31 76 06/17/24 16:31 98.8 76 17 118/90 (99) 98 98.8 06/17/24 16:22 80 18 130/70 06/17/24 13:01 80 18 140/70 06/17/24 12:56 84 19 98 Room Air* 0 21 06/17/24 12:24 79 06/17/24 12:00 80 18 130/80 06/17/24 11:56 81 06/17/24 11:53 98.0 79 20 131/99 (110) 100 06/17/24 11:41 81 Lab Test 06/17/24 13:13 06/17/24 11:50 Range/Units Troponin I High Sensitivity 8 9 </=34 ng/L White Blood Count 4.2 L 4.4-10.8 10^3/uL Red Blood Count 4.55 4.0-5.20 10^6/uL Hemoglobin 13.9 12.2-16.2 g/dL Hematocrit 41.3 36.0-46.0 % Mean Corpuscular Volume 90.8 80.0-100.0 fL Mean Corpuscular Hemoglobin 30.5 28.0-32.0 pg Mean Corpuscular Hemoglobin Concent 33.6 32.0-36.0 g/dL Red Cell Distribution Width 13.3 11.8-14.3 % Platelet Count 272 140-450 10^3/uL Mean Platelet Volume 7.9 6.9-10.8 fL Neutrophils (%) (Auto) 47.2 37.0-80.0 % Lymphocytes (%) (Auto) 45.5 10.0-50.0 % Monocytes (%) (Auto) 5.5 0.0-12.0 % Eosinophils (%) (Auto) 1.1 0.0-7.0 % Basophils (%) (Auto) 0.7 0.0-2.0 % Neutrophils # (Auto) 2.0 1.6-8.6 10 ^3/uL Lymphocytes # (Auto) 1.9 0.4-5.4 10 ^3/uL Monocytes # (Auto) 0.2 0-1.3 10 ^3/uL Eosinophils # (Auto) 0 0-0.8 10 ^3/uL Basophils # (Auto) 0 0-0.2 10 ^3/uL Nucleated Red Blood Cells 0.2 % Sodium Level 138 136-145 mmol/L Potassium Level 4.0 3.5-5.1 mmol/L Chloride Level 105 98-107 mmol/L Carbon Dioxide Level 27 20-31 mmol/L Anion Gap 6 5-15 Blood Urea Nitrogen 9 9-23 mg/dL Creatinine 0.71 0.550-1.02 mg/dL Glomerular Filtration Rate Calc 103 >90 mL/min BUN/Creatinine Ratio 12.7 10.0-20.0 Serum Glucose 108 H 74-106 mg/dL Calcium Level 10.1 8.7-10.4 mg/dL Total Bilirubin 0.3 0.2-1.0 mg/dL Aspartate Amino Transferase (AST) 17 13-40 U/L Alanine Aminotransferase (ALT) 27 7-40 U/L Alkaline Phosphatase 73 46-116 U/L Total Protein 7.3 5.7-8.2 g/dL Albumin 4.5 3.2-4.8 g/dL Current Medications Medications (Trade) Dose Ordered Sig/Dave Route Start Time Stop Time Status Last Admin Morphine Sulfate 4 mg ONCE ONCE IV 06/17/24 12:00 06/17/24 12:01 DC 06/17/24 12:00 Ondansetron HCl (Zofran) 4 mg ONCE ONCE IV 06/17/24 12:00 06/17/24 12:01 DC 06/17/24 13:00 Morphine Sulfate 4 mg ONCE ONCE IV 06/17/24 16:15 06/17/24 16:17 DC 06/17/24 16:22 Ondansetron HCl (Zofran) 4 mg ONCE ONCE IV 06/17/24 16:15 06/17/24 16:17 DC 06/17/24 16:22 CXR: FINDINGS: Lines and Tubes: None Lungs: No focal consolidation. Pleura: No effusion. No pneumothorax. Cardiomediastinal contours: Unremarkable Bones: No acute osseous abnormality. IMPRESSION: 1. No acute cardiopulmonary disease. HS:Y ATED BY: MARIA ALEJANDRA HFUFMAN MD DICTATED DATE/TIME: 06/17/241214 SIGNED BY: MARIA ALEJANDRA HUFFMAN MD SIGNED DATE/TIME: 06/17/241214 CC: The patient was being admitted with a diagnosis of intractable abdominal pain The patient was given morphine 4 mg IV push for the pain The patient was given Zofran The patient was then started again with symptoms of pain so the patient was given morphine and Zofran again The patient's CBC is within normal limits The chemistry panel is within normal limits The troponin level x2 is within normal limits The patient was being admitted at this time Images Reviewed?: Images reviewed and evaluated by me Time of 1ST Reevaluation: 12:10 Reevaluation 1ST: Unchanged Patient Education/Counseling: Diagnosis, Treatment, Prognosis Family Education/Counseling: No Family Present Additional Information - I reviewed the following notes from patient's past medical encounters: 05/05/24 DX:ABD PAIN - The following tests were ordered, and results were reviewed by me: CBC, CMP, UA, TROPONIN X3, CXR - I reviewed and agreed with the following test results read by other provider: CXR - I discussed treatments and results with medical personnel and: PATIENT Departure 1 Departure Time of Disposition: 21:14 Impression: Primary Impression: Intractable abdominal pain Additional Impression: Abdominal pain of unknown etiology Disposition: ADMITTED INPATIENT Admit to: [facility] Condition: Fair Critical Care Note Critical Care Time?: No Stability Stability form required: Yes Unstable for transfer: Telemetry monitoring (Telemetry monitoring required), ED Physician Assesment (Clinical assesment) Heart Score Heart Score: Heart Score Response (Comments) Value History Slightly Suspicious 0 EKG Normal 0 Age 45-64 1 Risk Factors 1 or 2 risk factors 1 Troponin Normal limit 0 Total 2 I personally scribed for SANGEETA CONRAD MD ([email or web address]) on 06/17/24 at 11:56. Electronically submitted by Jenniffer Evans ([email or web address]). I personally scribed for SANGEETA CONRAD MD ([email or web address]) on 06/17/24 at 13:55. Electronically submitted by Jenniffer Evans ([email or web address]). I personally scribed for SANGEETA CONRAD MD ([email or web address]) on 06/17/24 at 13:56. Electronically submitted by Jenniffer Evans ([email or web address]). SANGEETA CONRAD MD Jun 17, 2024 11:56
[2024-06-17] MEDS: MORPHINE SULFATE 4 MG/ML SYR/VIAL IV ONE ×2 (12:00→16:22)
[2024-06-17 12:05] LABS: Basophils # (auto) 0 10 ^3/uL (0-0.2); Basophils % (auto) 0.7 % (0.0-2.0); Eosinophils # (auto) 0 10 ^3/uL (0-0.8); Eosinophils % (auto) 1.1 % (0.0-7.0); Hematocrit 41.3 % (36.0-46.0); Hemoglobin 13.9 g/dL (12.2-16.2); Lymphocytes # (auto) 1.9 10 ^3/uL (0.4-5.4); Lymphocytes % (auto) 45.5 % (10.0-50.0); Mean Corpuscular Hemoglobin 30.5 pg (28.0-32.0); Mean Corpuscular Hgb Conc. 33.6 g/dL (32.0-36.0); Mean Corpuscular Volume 90.8 fL (80.0-100.0); Monocytes # (auto) 0.2 10 ^3/uL (0-1.3); Monocytes % (auto) 5.5 % (0.0-12.0); Neutrophils % (auto) 47.2 % (37.0-80.0); Nucleated Red Blood Cells % 0.2 %; Platelet Count (auto) 272 10^3/uL (140-450); Red Blood Cells 4.55 10^6/uL (4.0-5.20); Red Cell Distribution Width 13.3 % (11.8-14.3); White Blood Cell 4.2 10^3/uL (4.4-10.8)
--- NOTE | 2024-06-17 12:18 | DVH ---
XY CHEST TWO VIEWS ROUTINE CLINICAL HISTORY: cp COMPARISON: Chest radiograph dated 04/01/2022. TECHNIQUE: Frontal and lateral view of the chest was obtained FINDINGS: Lines and Tubes: None Lungs: No focal consolidation. Pleura: No effusion. No pneumothorax. Cardiomediastinal contours: Unremarkable Bones: No acute osseous abnormality. IMPRESSION: 1. No acute cardiopulmonary disease. HS:Y
[2024-06-17 12:28] LABS: Alanine Aminotransferase 27 U/L (7-40); Albumin 4.5 g/dL (3.2-4.8); Alkaline Phosphatase 73 U/L (46-116); Anion Gap 6 (5-15); Aspartate Aminotransferase 17 U/L (13-40); BUN/Creatinine Ratio 12.7 (10.0-20.0); Bilirubin, Total 0.3 mg/dL (0.2-1.0); Blood Urea Nitrogen 9 mg/dL (9-23); Calcium 10.1 mg/dL (8.7-10.4); Carbon Dioxide 27 mmol/L (20-31); Chloride 105 mmol/L (98-107); Sodium 138 mmol/L (136-145)
[2024-06-17 12:29] LABS: Total Protein 7.3 g/dL (5.7-8.2)
[2024-06-17 12:35] LABS: Glucose 108 mg/dL (74-106)
[2024-06-17 12:56] VITALS: PULSE 84; RESP 19; O2SAT 98
[2024-06-17] MEDS: ONDANSETRON HCL 4 MG/2 ML VIAL IV ONE ×2 (13:00→16:22)
--- NOTE | 2024-06-17 14:31 | ECG ---
[facility] Test Date: 2024-06-17 Test Time: 12:24:14 Pat Name: JOSUE HUFFMAN Department: ER Room: Gender: F Slot Floorman: MANUEL : 1975 Requested By: SANGEETA CONRAD Order Number: [id number] Reading MD: Marin Helm Measurements Intervals [place] Rate: 79 P: 10 CT: 165 QRS: 36 QRSD: 89 T: 11 QT: 390 QTc: 448 Interpretive Statements Sinus rhythm Electronically Signed On 06-17-2024 15:45:16 PST by Marin Helm Please click the below link to view image of tracing.
--- NOTE | 2024-06-17 17:58 | DVH ---
Exam: CT CT AB PEL WO CON-NO ORAL OR IV History: pain Comparison Study: None available at time of dictation. TECHNIQUE: Multidetector CT of the abdomen was performed from lung bases to pubic symphysis. Imaging was performed without IV contrast. Axial, coronal and sagittal multiplanar reformats were obtained fr om the axial data set by the technologist. Radiation Dose Information: CT Dose: CTDI volume is 5.99 mGy. Dose-length product is 305.56 mGy*cm FINDINGS: Evaluation of solid organs is limited due to lack of intravenous contrast use. Findings: Lung Bases: No acute or significant lung base finding. Normal heart size. No pleural or pericardial effusion. Liver: The liver is normal in size. No focal lesions. Gallbladder and Biliary Tree: Patient is status post cholecystectomy. Spleen: Unremarkable Pancreas: The pancreas is grossly normal in appearance. Adrenal Glands: Unremarkable Kidneys: Kidneys are grossly normal without calculi or hydronephrosis. Bladder: Grossly unremarkable for degree of distention. Bowel: The stomach is grossly normal in appearance. Small bowel and colon are normal in caliber and d istribution. The appendix is not visualized; however, no secondary findings of acute appendicitis id entified. Ascites: Absent Lymphadenopathy: No mesenteric, retroperitoneal or periportal lymphadenopathy. Abdominal Wall and Mesentery: Unremarkable. Vasculature: The visualized abdominal aorta is normal in size and caliber. Evaluation of abdominal a nd pelvic vessels is limited due to lack of intravenous contrast. Pelvic Organs: Unremarkable Musculoskeletal: No aggressive focal bony lesions, acute fractures or dislocation. Soft tissues: Unremarkable IMPRESSION: 1. Punctate nonobstructing calculus left kidney 2. Gallbladder has been surgically removed. . Radiation optimization: All CT scans at this facility use at least one of these dose optimization fiorella hniques: automated exposure control mA and/or kV adjustment per patient size (includes targeted exam s where dose is matched to clinical indication) or iterative reconstruction. HS:Y
[2024-06-17] MEDS ORDERED: KETOROLAC TROMETH 30 MG/ML 1ML VIAL IV PRN (22:30)
[2024-06-17] MEDS ORDERED: NITROGLYCERIN 0.4 MG SL TAB SL PRN (22:30)
[2024-06-17] MEDS ORDERED: MORPHINE SULFATE INJ 2 MG/ml SYRG IV PRN (22:30)
[2024-06-17 22:53] LABS: COVID19 ANTIGEN SOFIA FIA NEGATIVE (NEGATIVE); Rapid Influenza A Negative (Negative); Rapid Influenza B Negative (Negative)
[2024-06-17 23:00] VITALS: PULSE 70; RESP 18; O2SAT 97
[2024-06-17] MEDS: amLODIPine BESYLATE 5 MG TAB PO SCH (23:00)
[2024-06-17] MEDS: ACETAMINOPHEN 325 MG TAB PO SCH (23:00)
--- NOTE | 2024-06-17 23:58 | DVHHPRES ---
History of Present Illness Resident Creating Document: [facility] MURRELL RESIDENT Reason for Visit: chest pain History of Present Illness Chief Complaint Left-sided pleuritic chest pain 49-year-old female with a history of diabetes mellitus, hyperlipidemia , and hypertension presents with sudden onset of left-sided pleuritic chest pain, described as sharp and worsened by deep inspiration. She reports associated lightheadedness and mild shortness of breath but denies fever, chills, nausea, vomiting, or recent illness. No history of trauma. The symptoms started today at approximately 9 AM She was recently having flu symptoms two weeks ago. No recent travel, immobilization, or known hypercoagulable state. No prior similar episodes. Past Medical History Diabetes Mellitus Hypertension Hyperlipidemia Thyroid cancer (s/p resection) Past Surgical History Cholecystectomy Thyroidectomy Medications Mounjaro Amlodipine Benazapril Lexapro Levothyroxine Allergies No known drug allergies Social History Smoking: Denies Alcohol: Occasional Drugs: Denies Review of Systems Constitutional: No: Fever, Chills, Sweats, Weakness, Malaise, Other Eyes: No: Pain, Vision change, Conjunctivae inflammation, Eyelid inflammation, Other, Redness ENT: No: Ear pain, Ear discharge, Nose pain, Nose discharge, Nose congestion, Mouth pain, Mouth swelling, Throat pain, Throat swelling, Other Respiratory: No: Cough, Dry, Shortness of breath, SOB with excertion, Wheezing, Hemoptysis, Pleuritic Pain, Sputum, Wheezing, Other Cardiovascular: No: Chest Pain, Palpitations, Orthopnea, Paroxysmal Noc. Dyspnea, Edema, Lt Headedness, Other Gastrointestinal: No: Nausea, Vomiting, Abdominal Pain, Diarrhea, Constipation, Melena, Hematochezia, Other Genitourinary: No Dysuria, No Frequency, No Incontinence, No Hematuria, No Retention, No Other Musculoskeletal: No: other, neck pain, shoulder pain, arm pain, back pain, hand pain, leg pain, foot pain Skin: No: Rash, Lesions, Jaundice, Bruising, Other Neurological: No: Weakness, Numbness, Incoordination, Change in speech, Confusion, Seizures, Other Allergies: Coded Allergies: NO KNOWN ALLERGIES (Unverified , 03/03/18) Medications Current Medications Medications Dose Ordered Sig/Dave Route Start Time Stop Time Status Last Admin Dose Admin Nitroglycerin 0.4 mg Q5MINP PRN SL 06/17/24 22:30 Morphine Sulfate 2 mg Q30M PRN IV 06/17/24 22:30 Amlodipine Besylate 5 mg DAILY PO 06/17/24 22:30 06/17/24 23:00 5 MG Benazepril HCl 10 mg DAILY PO 06/18/24 10:00 Acetaminophen 650 mg TID PO 06/17/24 22:30 06/17/24 23:00 650 MG Ketorolac Tromethamine 30 mg Q12HP PRN IV 06/17/24 22:30 06/22/24 22:29 Exam Vital Signs Vital Signs Date Time Temp Pulse Resp B/P (MAP) Pulse Ox O2 Delivery O2 Flow Rate FiO2 06/17/24 23:00 70 18 97 Room Air* 0 21 06/17/24 23:00 116/80 06/17/24 22:57 98.2 98.2 General Appearance: Alert, Oriented X3, Cooperative, No acute distress HEENT: Atraumatic, PERRLA, EOMI, Mucous membr. moist/pink Respiratory: Clear to auscultation, Normal air movement Cardiovascular: Regular rate, Normal S1, Normal S2, No murmurs, Other (tender point below left breast ) Abdominal: Normal bowel sounds, Soft Extremities: No clubbing, No cyanosis Skin: No rashes, No breakdown, No significant lesion Neuro: Normal gait, Normal speech, Strength at 5/5 X4 ext, Normal tone, Sensation intact Psych/Mental Status: Mental status NL, Mood NL, Other Labs/Xrays Labs Test 06/17/24 22:01 06/17/24 13:13 06/17/24 11:50 Range/Units Influenza Type A Antigen Negative Negative Influenza Type B Antigen Negative Negative SARS-CoV-2 Antigen (Rapid) Negative NEGATIVE Troponin I High Sensitivity 8 </=34 ng/L White Blood Count 4.2 L 4.4-10.8 10^3/uL Red Blood Count 4.55 4.0-5.20 10^6/uL Hemoglobin 13.9 12.2-16.2 g/dL Hematocrit 41.3 36.0-46.0 % Mean Corpuscular Volume 90.8 80.0-100.0 fL Mean Corpuscular Hemoglobin 30.5 28.0-32.0 pg Mean Corpuscular Hemoglobin Concent 33.6 32.0-36.0 g/dL Red Cell Distribution Width 13.3 11.8-14.3 % Platelet Count 272 140-450 10^3/uL Mean Platelet Volume 7.9 6.9-10.8 fL Neutrophils (%) (Auto) 47.2 37.0-80.0 % Lymphocytes (%) (Auto) 45.5 10.0-50.0 % Monocytes (%) (Auto) 5.5 0.0-12.0 % Eosinophils (%) (Auto) 1.1 0.0-7.0 % Basophils (%) (Auto) 0.7 0.0-2.0 % Neutrophils # (Auto) 2.0 1.6-8.6 10 ^3/uL Lymphocytes # (Auto) 1.9 0.4-5.4 10 ^3/uL Monocytes # (Auto) 0.2 0-1.3 10 ^3/uL Eosinophils # (Auto) 0 0-0.8 10 ^3/uL Basophils # (Auto) 0 0-0.2 10 ^3/uL Nucleated Red Blood Cells 0.2 % Sodium Level 138 136-145 mmol/L Potassium Level 4.0 3.5-5.1 mmol/L Chloride Level 105 98-107 mmol/L Carbon Dioxide Level 27 20-31 mmol/L Anion Gap 6 5-15 Blood Urea Nitrogen 9 9-23 mg/dL Creatinine 0.71 0.550-1.02 mg/dL Glomerular Filtration Rate Calc 103 >90 mL/min BUN/Creatinine Ratio 12.7 10.0-20.0 Serum Glucose 108 H 74-106 mg/dL Calcium Level 10.1 8.7-10.4 mg/dL Total Bilirubin 0.3 0.2-1.0 mg/dL Aspartate Amino Transferase (AST) 17 13-40 U/L Alanine Aminotransferase (ALT) 27 7-40 U/L Alkaline Phosphatase 73 46-116 U/L Total Protein 7.3 5.7-8.2 g/dL Albumin 4.5 3.2-4.8 g/dL Assessment/Plan Assessment/Plan 49 y/o female with pleuritic chest pain, likely musculoskeletal etiology, rule o ut pericarditis. EKG sinus rhythm troponins neg #Musculoskeletal chest pain #ACS ruled out #Pericarditis (low suspicion, no ECG changes or effusion) #incidental left kidney stone #Hypertension Plan: Pain management IV hydration for incidental kidney stone Viral panel neg Resume home meds Ddimer ordered Case discussed with Dr Marshall Time spent on care 23 min Plan discussed with: Patient, Other My Orders Orders - [facility] MURRELL RESIDENT Procedure Category Date Status Time Cardiac DIET 06/18/24 Transmitted Diet-2gna,Lofat,Lochol Breakfast Nitroglycerin PHA 06/17/24 In Process Sublingual (Ntrostat 22:30 Morphine Sulfate PHA 06/17/24 In Process Injection 22:30 Oxygen By Nasal RT 06/17/24 Transmitted Cannula 22:17 Stat Ekg For Chest [facility] 06/17/24 In Process Pain 22:17 Notify Md Of Changes [facility] 06/17/24 In Process From Base 22:17 Seat Nailer For [facility] 06/17/24 In Process 24 Hours 22:17 Emergency Dysrhythmia [facility] 06/17/24 In Process Protocol 22:17 Rhythm Strips Once [facility] 06/17/24 In Process Every Shift 22:17 Amlodipine Tablet PH[facility] 06/17/24 In Process (Norvasc Tablet) 22:30 Benazepril Hcl Tablet PHA 06/18/24 In Process (Lotensin Tablet) 10:00 Acetaminophen Tablet PHA 06/17/24 In Process (Tylenol Tablet) 22:30 Ketorolac Injection PHA 06/17/24 In Process (Toradol Injection) 22:30 Admit ADMIT 06/17/24 Transmitted 22:28 Urinalysis LAB 06/17/24 Logged 23:36 Drug Screen LAB 06/17/24 Logged 23:36 Date of Service: Jun 17, 2024 Billing Provider: THOM MARSHALL MD Common Visit Codes: [id number] INP/OBS CARE (HIGH) [facility] RESIDENT Jun 17, 2024 23:57 THOM MARSHALL MD Jun 18, 2024 23:32
[2024-06-18] VITALS (8 sets, daily range): BP systolic 102–137; BP diastolic 72–97; PULSE 69–80; RESP 15–18; TEMP 97.3–98.2; O2SAT 96–98
[2024-06-18] MEDS ORDERED: INSU1INJ14 SC (01:31)
[2024-06-18] MEDS ORDERED: LEVO125T7 (01:31)
[2024-06-18] MEDS ORDERED: TIRZ10IN (01:31)
[2024-06-18] MEDS ORDERED: ESCI5TAB20 (01:31)
[2024-06-18 07:22] LABS: CRP High Sensitivity 0.09 mg/dL (<1.0); Magnesium 2.1 mg/dL (1.6-2.6)
[2024-06-18 08:43] LABS: Erythrocyte Sedimentation Rate 6 mm/hr (0-20)
[2024-06-18] MEDS: BENAZEPRIL HCL 10 MG TAB PO SCH (09:57)
[2024-06-18] MEDS ORDERED: CYCL-839 PO (11:48)
--- NOTE | 2024-06-18 11:49 | DVHDSRES ---
Discharge Summary Date of Admission Resident Creating Document: [facility] MURRELL RESIDENT Jun 17, 2024 at 22:17 Date of Discharge: Jun 18, 2024 Labs/Diagnostic Data: Laboratory Results Test 06/18/24 00:25 06/18/24 00:20 06/17/24 22:01 06/17/24 13:13 Erythrocyte Sedimentation Rate 6 mm/hr (0-20) Magnesium Level 2.1 mg/dL (1.6-2.6) C-Reactive Protein High Sensitivity 0.09 mg/dL (<1.0) B-Type Natriuretic Peptide 1.60 pg/mL (0-100) Thyroid Stimulating Hormone (TSH) 5.08 uIU/mL (0.55-4.78) D-Dimer, Quantitative 0.39 mg/L FEU (0.0-0.49) Influenza Type A Antigen Negative (Negative) Influenza Type B Antigen Negative (Negative) SARS-CoV-2 Antigen (Rapid) Negative (NEGATIVE) Troponin I High Sensitivity 8 ng/L (</=34) Test 06/17/24 11:50 White Blood Count 4.2 10^3/uL (4.4-10.8) Red Blood Count 4.55 10^6/uL (4.0-5.20) Hemoglobin 13.9 g/dL (12.2-16.2) Hematocrit 41.3 % (36.0-46.0) Mean Corpuscular Volume 90.8 fL (80.0-100.0) Mean Corpuscular Hemoglobin 30.5 pg (28.0-32.0) Mean Corpuscular Hemoglobin Concent 33.6 g/dL (32.0-36.0) Red Cell Distribution Width 13.3 % (11.8-14.3) Platelet Count 272 10^3/uL (140-450) Mean Platelet Volume 7.9 fL (6.9-10.8) Neutrophils (%) (Auto) 47.2 % (37.0-80.0) Lymphocytes (%) (Auto) 45.5 % (10.0-50.0) Monocytes (%) (Auto) 5.5 % (0.0-12.0) Eosinophils (%) (Auto) 1.1 % (0.0-7.0) Basophils (%) (Auto) 0.7 % (0.0-2.0) Neutrophils # (Auto) 2.0 10 ^3/uL (1.6-8.6) Lymphocytes # (Auto) 1.9 10 ^3/uL (0.4-5.4) Monocytes # (Auto) 0.2 10 ^3/uL (0-1.3) Eosinophils # (Auto) 0 10 ^3/uL (0-0.8) Basophils # (Auto) 0 10 ^3/uL (0-0.2) Nucleated Red Blood Cells 0.2 % Sodium Level 138 mmol/L (136-145) Potassium Level 4.0 mmol/L (3.5-5.1) Chloride Level 105 mmol/L (98-107) Carbon Dioxide Level 27 mmol/L (20-31) Anion Gap 6 (5-15) Blood Urea Nitrogen 9 mg/dL (9-23) Creatinine 0.71 mg/dL (0.550-1.02) Glomerular Filtration Rate Calc 103 mL/min (>90) BUN/Creatinine Ratio 12.7 (10.0-20.0) Serum Glucose 108 mg/dL (74-106) Calcium Level 10.1 mg/dL (8.7-10.4) Total Bilirubin 0.3 mg/dL (0.2-1.0) Aspartate Amino Transferase (AST) 17 U/L (13-40) Alanine Aminotransferase (ALT) 27 U/L (7-40) Alkaline Phosphatase 73 U/L (46-116) Total Protein 7.3 g/dL (5.7-8.2) Albumin 4.5 g/dL (3.2-4.8) Other Laboratory Tests 06/17/24 11:50 Brief Hx & Hospital Course: 49-year-old female with a history of diabetes mellitus, hyperlipidemia , and hypertension presents with sudden onset of left-sided pleuritic chest pain, described as sharp and worsened by deep inspiration. She reports associated lightheadedness and mild shortness of breath but denies fever, chills, nausea, vomiting, or recent illness. No history of trauma. The symptoms started today at approximately 9 AM. She was recently having flu symptoms two weeks ago. No recent travel, immobilization, or known hypercoagulable state. No prior similar episodes. During the hospitalization, EKG was completed which was negative. Troponins were within normal limits. Blood work was WNL. Given the history/clinical findings/laboratory workup, patient probably a chest pain secondary to musculoskeletal causes. She reported stretching while she was seeing her orthopedic physician this prior to the pain. Abdominal CT and chest x-ray were completed which were unremarkable. Repeat EKGs and troponin were performed which were also negative. ESR, CRP her within normal limits. TSH was 5, patient takes levothyroxine and she was advised to follow up with TSH within a week with the primary care physician. 06/18/2024 patient is hemodynamically stable, clinically stable, no active complaint and therefore is discharged to home with tablet Flexeril 10 mg once daily nighttime for the next 5 days. Discharge diagnosis: Atypical chest pain secondary to Musculoskeletal causes ACS ruled out Pericarditis ruled out incidental left kidney stone Hypertension Diabetes mellitus type 2-controlled Dyslipidemia History of thyroid cancer s/p with thyroidectomy Operations or Procedures Exam: CT CT AB PEL WO CON-NO ORAL OR IV History: pain Comparison Study: None available at time of dictation. TECHNIQUE: Multidetector CT of the abdomen was performed from lung bases to pubic symphysis. Imaging was performed without IV contrast. Axial, coronal and sagittal multiplanar reformats were obtained from the axial data set by the technologist. Radiation Dose Information: CT Dose: CTDI volume is 5.99 mGy. Dose-length product is 305.56 mGy*cm FINDINGS: Evaluation of solid organs is limited due to lack of intravenous contrast use. Findings: Lung Bases: No acute or significant lung base finding. Normal heart size. No pleural or pericardial effusion. Liver: The liver is normal in size. No focal lesions. Gallbladder and Biliary Tree: Patient is status post cholecystectomy. Spleen: Unremarkable Pancreas: The pancreas is grossly normal in appearance. Adrenal Glands: Unremarkable Kidneys: Kidneys are grossly normal without calculi or hydronephrosis. Bladder: Grossly unremarkable for degree of distention. Bowel: The stomach is grossly normal in appearance. Small bowel and colon are normal in caliber and distribution. The appendix is not visualized; however, no secondary findings of acute appendicitis identified. Ascites: Absent Lymphadenopathy: No mesenteric, retroperitoneal or periportal lymphadenopathy. Abdominal Wall and Mesentery: Unremarkable. Vasculature: The visualized abdominal aorta is normal in size and caliber. Evaluation of abdominal and pelvic vessels is limited due to lack of intravenous contrast. Pelvic Organs: Unremarkable Musculoskeletal: No aggressive focal bony lesions, acute fractures or dislocation. Soft tissues: Unremarkable IMPRESSION: 1. Punctate nonobstructing calculus left kidney 2. Gallbladder has been surgically removed. . Radiation optimization: All CT scans at this facility use at least one of these dose optimization techniques: automated exposure control mA and/or kV adjustment per patient size (includes targeted exams where dose is matched to clinical indication) or iterative reconstruction. HS:Y ATED BY: JASON HERBERT Jr., DO DICTATED DATE/TIME: 06/17/241755 SIGNED BY: JASON HERBERT Jr., SIGNED DATE/TIME: 06/17/241755 CC: Condition at Discharge: Stable Final Diagnosis/Problems List Atypical chest pain, secondary to musculoskeletal causes-resolved Ruled out pericarditis ACS ruled out incidental left kidney stone Hypertension Diabetes mellitus type 2-controlled Dyslipidemia History of thyroid cancer s/p with thyroidectomy Discharge Disposition: Home Discharge Instruct/Medications Diet: Regular Activity: No Restrictions, As Tolerated Follow Up/Referral: Follow up with primary care physician within 7 days Follow up with the discharge clinic appointment within 7 days Medications: Flexeril 10 mg bedtime for the next 5 days Discharge Statement: "Patient was advised to return to the ER or call 911 if any headaches, dizziness, shortness of breath, chest pain, abdominal pain, bleeding, fevers, or worsening of medical condition. Patient was counseled about treatment plan, medications, possible side effects, patientverbalized understanding. All questions were answered to the best of my ability. This discharge took greater then 30 minutes in planning, reviewing documentation, counseling the patient, and discussing with other team members." ASSESSMENT ASSESSMENT Assessment Atypical chest pain, secondary to musculoskeletal causes-resolved Ruled out pericarditis Date of Service: Jun 18, 2024 Billing Provider: JESSICA LACKEY MD Common Visit Codes: 09863-LZH/OBS DISCH DAY >30min MICHELE HAMMOND Jun 18, 2024 11:49 JESSICA LACKEY MD Jun 21, 2024 00:34
--- NOTE | 2024-06-18 12:39 | ECG ---
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
== END 2024-06-18 19:30 | disposition home or self-care (01) | DRG 392 ==
LOC: ER 11:41 → OVERFLOW 22:17 → TELE-WESTW 06-18 05:10
PROVIDERS: ADMIT Student in an Organized Health Care Education/Training Program; ATTEND Student in an Organized Health Care Education/Training Program
DX: R10.9 Unspecified abdominal pain (principal); I10 Essential (primary) hypertension; E78.5 Hyperlipidemia, unspecified; E11.9 Type 2 diabetes mellitus without complications; N20.0 Calculus of kidney; Z20.822 Contact with and (suspected) exposure to COVID-19; Z90.710 Acquired absence of both cervix and uterus; Z90.49 Acquired absence of other specified parts of digestive tract; Z85.850 Personal history of malignant neoplasm of thyroid; Z79.899 Other long term (current) drug therapy; Z79.4 Long term (current) use of insulin
CPT/HCPCS: 36415; 71046; 74176; 80053; 83735; 83880; 84443; 84484; 85025; 85379; 85652; 86141; 87426; 87804; 93005; 96374; 96375; 96376; G0378; J2405

== ENCOUNTER 2024-06-27 12:22 | Emergency (ER) | payer OTHER ==
[~2024-06-27] VITALS: Ht 157.5 cm; Wt 69.7 kg
[~2024-06-27 12:22] MED LIST changes: -CIPR-173 PO; +CYCL-839 PO; -DICY10CA PO; +ESCI5TAB20; +INSU1INJ14 SC; +LEVO125T7; +TIRZ10IN
[2024-06-27 15:05] VITALS: BP 133/100; PULSE 105; RESP 18; TEMP 97.8; O2SAT 98
[2024-06-27 15:49] LABS: Anion Gap 9 (5-15); Carbon Dioxide 25 mmol/L (20-31); Chloride 104 mmol/L (98-107); Sodium 138 mmol/L (136-145)
[2024-06-27 15:50] LABS: Calcium 9.9 mg/dL (8.7-10.4)
[2024-06-27 15:55] LABS: Blood Urea Nitrogen 9 mg/dL (9-23); Glucose 86 mg/dL (74-106)
[2024-06-27 16:00] LABS: Basophils # (auto) 0 10 ^3/uL (0-0.2); Basophils % (auto) 0.2 % (0.0-2.0); Eosinophils # (auto) 0 10 ^3/uL (0-0.8); Eosinophils % (auto) 0.3 % (0.0-7.0); Hematocrit 40.3 % (36.0-46.0); Hemoglobin 13.5 g/dL (12.2-16.2); Lymphocytes # (auto) 1.8 10 ^3/uL (0.4-5.4); Lymphocytes % (auto) 18.4 % (10.0-50.0); Mean Corpuscular Hemoglobin 30.5 pg (28.0-32.0); Mean Corpuscular Hgb Conc. 33.6 g/dL (32.0-36.0); Mean Corpuscular Volume 90.9 fL (80.0-100.0); Monocytes # (auto) 0.7 10 ^3/uL (0-1.3); Monocytes % (auto) 7.3 % (0.0-12.0); Neutrophils % (auto) 73.8 % (37.0-80.0); Nucleated Red Blood Cells % 0.1 %; Platelet Count (auto) 225 10^3/uL (140-450); Potassium 3.5 mmol/L (3.5-5.1); Red Blood Cells 4.44 10^6/uL (4.0-5.20); Red Cell Distribution Width 13.5 % (11.8-14.3); White Blood Cell 9.5 10^3/uL (4.4-10.8)
[2024-06-27 16:10] LABS: Rapid Influenza A Negative (Negative); Rapid Influenza B Negative (Negative)
[2024-06-27 16:11] LABS: Urine Bacteria MANY /hpf (None Seen); Urine Blood Negative /uL (Negative); Urine Clarity Clear (Clear); Urine Color Light-Yellow (Yellow); Urine Protein, UAD Negative (Negative); Urine Specific Gravity 1.009 (1.001-1.035); Urine Squamous Epithelial Cell FEW /hpf (<5); Urine Urobilinogen Normal (Negative); Urine WBC 1 /HPF (0-5)
[2024-06-27 16:46] LABS: COVID19 ANTIGEN SOFIA FIA NEGATIVE (NEGATIVE)
[2024-06-27] MEDS ORDERED: LIDO2SOL18 MT (17:03)
[2024-06-27] MEDS ORDERED: IBUP-1455 PO (17:03)
[2024-06-27] MEDS ORDERED: BENZLOZ2 MT (17:03)
--- NOTE | 2024-06-27 17:03 | ED.PDOC ---
SOB-HPI HPI Comments 49-year-old presents for sore throat times two days. Body aches nasal con gestion fatigue. Not taking medications at this time Chief Complaint: Flu like Time Seen by MD: 13:52 Primary Care Provider: ROLANDO Reviewed notes: Nurses Notes, Medications, Allergies Information Source: Patient Mode of Arrival: Ambulatory Past Medical History PAST MEDICAL HISTORY: Cancer, DM, High Lipids, HTN, Thyroid Surgical History: Cholecystectomy, , Hysterectomy, Thyroidectomy CLASSIFICATION CLERK History: No Pertinent CLASSIFICATION CLERK History Family History Family History: Reviewed,noncontributory to illness Social History Smoker: Non-Smoker Alcohol: Denies ETOH Use Drugs: Denies Drug Use Lives In: Home All Other Systems: Reviewed and Negative (Per HPI) Physical Exam General Appearance: No Apparent Distress, Normal HEENT: Normal ENT Inspection, Pharynx Normal, TMs Normal Neck: Full Range of Motion, Non-Tender, Normal, Normal Inspection Respiratory: Chest Non-Tender, Lungs Clear, No Accessory Muscle Use, No Respiratory Distress, Normal Breath Sounds Cardiovascular: No Edema, No JVD, No Murmur, No Gallop, Normal Peripheral Pulses, Regular Rate/Rhythm Breast Exam: Deferred Gastrointestinal: No Organomegaly, Non Tender, No Pulsatile Mass, Normal Bowel Sounds, Soft Genitalia: Deferred Pelvic: Deferred Rectal: Deferred Extremities: No calf tenderness, Normal capillary refill, Normal inspection, Normal range of motion, Non-tender, No pedal edema Musculoskeletal : Apperance: Normal Neurologic: Alert, No Motor Deficits, Normal Affect, Normal Mood, No Sensory Deficits Cerebellar Function: Normal Reflexes: Normal Skin: Dry, Normal Color, Warm Lymphatic: No Adenopathy Was a procedure done? Was a procedure done?: No Differential Dx Differential Diagnosis: URI X-Ray, Labs, Meds, VS Vital Signs Date Time Temp Pulse Resp B/P (MAP) Pulse Ox O2 Delivery O2 Flow Rate FiO2 06/27/24 15:05 97.8 105 18 133/100 (111) 98 97.8 06/27/24 15:05 105 18 98 Room Air 06/27/24 12:39 18 98 Room Air* 0 21 06/27/24 12:36 97.8 103 18 133/100 (111) 98 Lab Test 06/27/24 15:07 06/27/24 12:40 Range/Units White Blood Count 9.5 4.4-10.8 10^3/uL Red Blood Count 4.44 4.0-5.20 10^6/uL Hemoglobin 13.5 12.2-16.2 g/dL Hematocrit 40.3 36.0-46.0 % Mean Corpuscular Volume 90.9 80.0-100.0 fL Mean Corpuscular Hemoglobin 30.5 28.0-32.0 pg Mean Corpuscular Hemoglobin Concent 33.6 32.0-36.0 g/dL Red Cell Distribution Width 13.5 11.8-14.3 % Platelet Count 225 140-450 10^3/uL Mean Platelet Volume 8.4 6.9-10.8 fL Neutrophils (%) (Auto) 73.8 37.0-80.0 % Lymphocytes (%) (Auto) 18.4 10.0-50.0 % Monocytes (%) (Auto) 7.3 0.0-12.0 % Eosinophils (%) (Auto) 0.3 0.0-7.0 % Basophils (%) (Auto) 0.2 0.0-2.0 % Neutrophils # (Auto) 7.0 1.6-8.6 10 ^3/uL Lymphocytes # (Auto) 1.8 0.4-5.4 10 ^3/uL Monocytes # (Auto) 0.7 0-1.3 10 ^3/uL Eosinophils # (Auto) 0 0-0.8 10 ^3/uL Basophils # (Auto) 0 0-0.2 10 ^3/uL Nucleated Red Blood Cells 0.1 % Sodium Level 138 136-145 mmol/L Potassium Level 3.5 3.5-5.1 mmol/L Chloride Level 104 98-107 mmol/L Carbon Dioxide Level 25 20-31 mmol/L Anion Gap 9 5-15 Blood Urea Nitrogen 9 9-23 mg/dL Creatinine 0.75 0.550-1.02 mg/dL Glomerular Filtration Rate Calc 96 >90 mL/min BUN/Creatinine Ratio 12.0 10.0-20.0 Serum Glucose 86 74-106 mg/dL Calcium Level 9.9 8.7-10.4 mg/dL Urine Color Light-yellow Yellow Urine Clarity Clear Clear Urine pH 6.0 5.0-9.0 Urine Specific [place] 1.009 1.001-1.035 Urine Protein Negative Negative Urine Ketones Negative Negative Urine Blood Negative Negative /uL Urine Nitrite Negative Negative Urine Bilirubin Negative Negative Urine Urobilinogen Normal Negative mg/dL Urine Leukocyte Esterase Negative Negative /uL Urine RBC 1 0 - 4 /hpf Urine Microscopic WBC 1 0-5 /HPF Urine Squamous Epithelial Cells Few <5 /hpf Urine Bacteria Many H None Seen /hpf Urine Glucose Normal Normal mg/dL Influenza Type A Antigen Negative Negative Influenza Type B Antigen Negative Negative SARS-CoV-2 Antigen (Rapid) Negative NEGATIVE X-Ray, Labs, Meds, VS Comment Patient presents with a chief complaint of a sore throat. After review of systems and physical examination there are no no concerns or red flags for peritonsillar abscess, abscess formation, epiglottitis, retropharyngeal abscess formation or airway obstruction. No concerns for peritonsillar abscess as patient denies severe sore throat, muffled or hot potato voice, and difficulty handling secretions. No concerns for abscess formation as the soft palate is symmetrical and there is no displacement of the uvula and the uvula is also midline. No concerns for epiglottitis as patient denies severe sore throat, dysphagia, muffled voice, patient is not drooling nor is patient in tripod position. No signs of retropharyngeal abscess formation as patient has no fevers, stiff neck, drooling no stridor No signs of airway obstruction as patient denies sensation of foreign body vital signs stable on room air. On reevaluation, patient had symptomatic improvement. Patient is stable for discharge at this time. External notes reviewed. Test results and diagnostic imaging interpreted. All diagnostic findings, discharge care, education and instructions provided Follow-up with PCP in 2 to 3 days Patient verbalized understanding and agreed to treatment plan Vital signs stable, afebrile, no acute distress noted Patient ambulatory with strong steady gait Advised to return precautions for any new or worsening symptoms, return to ER immediately for re-evaluation Patient is aware that the purpose of this visit was for an acute medical emergency requiring emergent stabilization. Chronic conditions, including malignancies have not been ruled out. Patient is instructed to follow up with PCP as directed and discharge instructions for continued care and workup. If unable to arrange follow-up, patient is to return to the emergency department for reassessment. Patient (parent or legal guardian if applicable) was given verbal and written discharge instructions and acknowledges understanding. Time of 1ST Reevaluation: 17:00 Reevaluation 1ST: Improved Patient Education/Counseling: Diagnosis, Treatment Family Education/Counseling: Diagnosis, Treatment Departure 1 Departure Time of Disposition: 17:02 Impression: Primary Impression: Lymphadenitis Disposition: 01 HOME / SELF CARE / HOMELESS Condition: Stable e-Prescriptions Benzocaine-Menthol (Mouth-Thro (Cepacol Sore Throat) 1 Jennifer Jennifer 1 JENNIFER MT UD for 7 Days, #15 JENNIFER 0 Refills Prov: JO CHINCHILLA NP 06/27/24 Lidocaine Hcl (Lidocaine Viscous) 2 % Valentine 15 ML MT TID for 10 Days, #200 ML 0 Refills Prov: JO CHINCHILLA NP 06/27/24 Ibuprofen Micronized (Ibuprofen) 800 Mg Tab 800 MG PO TIDWM for 10 Days, #30 TAB 0 Refills Prov: JO CHINCHILLA NP 06/27/24 Critical Care Note Critical Care Time?: No Stability Stability form required: No Heart Score Heart Score: Heart Score Response (Comments) Value History N/A 0 EKG N/A 0 Age N/A 0 Risk Factors N/A 0 Troponin N/A 0 Total 0 JO CHINCHILLA NP Jun 27, 2024 17:03
== END 2024-06-27 18:13 | disposition home or self-care (01) ==
LOC: ER 12:22
DX: I88.9 Nonspecific lymphadenitis, unspecified (principal); E11.9 Type 2 diabetes mellitus without complications; E78.5 Hyperlipidemia, unspecified; I10 Essential (primary) hypertension; E03.9 Hypothyroidism, unspecified; Z90.49 Acquired absence of other specified parts of digestive tract; Z90.89 Acquired absence of other organs; Z90.710 Acquired absence of both cervix and uterus; Z98.890 Other specified postprocedural states; Z20.822 Contact with and (suspected) exposure to COVID-19
CPT/HCPCS: 36415; 80048; 81001; 85025; 87426; 87804

== ENCOUNTER 2025-02-04 12:12 | Emergency (ER) | payer OTHER ==
[~2025-02-04] VITALS: Ht 157.5 cm; Wt 68.9 kg
[~2025-02-04 12:12] MED LIST changes: +BENZLOZ2 MT; +IBUP-1455 PO; +LIDO2SOL18 MT
[2025-02-04 13:01] LABS: Hematocrit 42.9 % (36.0-46.0); Hemoglobin 14.6 g/dL (12.2-16.2); Mean Corpuscular Hemoglobin 30.7 pg (28.0-32.0); Mean Corpuscular Volume 90.1 fL (80.0-100.0); Nucleated Red Blood Cells % 0.0 %
[2025-02-04 13:16] LABS: Alanine Aminotransferase 24 U/L (7-40); Albumin 4.3 g/dL (3.2-4.8); Alkaline Phosphatase 84 U/L (46-116); Anion Gap 9 (5-15); BUN/Creatinine Ratio 14.8 (10.0-20.0); Bilirubin, Total 0.4 mg/dL (0.2-1.0); Blood Urea Nitrogen 12 mg/dL (9-23); Calcium 9.5 mg/dL (8.7-10.4); Carbon Dioxide 27 mmol/L (20-31); Potassium 4.1 mmol/L (3.5-5.1); Sodium 144 mmol/L (136-145); Total Protein 7.5 g/dL (5.7-8.2)
[2025-02-04 13:17] LABS: Chloride 108 mmol/L (98-107); Glucose 107 mg/dL (74-106); Lipase 63 U/L (12-53)
[2025-02-04 13:20] LABS: Urine Protein, UAD Negative (Negative)
--- NOTE | 2025-02-04 13:42 | DVH ---
EXAM: CT CT AB PEL WO CON-NO ORAL OR IV HISTORY: abd pain COMPARISON: CT CT AB PEL WO CON-NO ORAL OR IV on DOS: 06/17/24, CT ABD PELVIS WO CONTRAST on DOS: 03/06 12/24, [facility] on DOS: 07/31/21 TECHNIQUE: Helical CT images of the abdomen and pelvis were performed without IV contrast. Sagittal a nd coronal reformatted images were obtained. This CT exam was performed using one or more of the foll owing dose reduction techniques: Automated exposure control, adjustment of the mA and/or kv according to patient size, or the use of iterative reconstruction techniques. Radiation Dose: Abdomen/Pelvis: CTDIvol 5.88 mGy, DLP 286.3 mGy*cm. FINDINGS: CT abdomen: The lung bases are clear. The heart is not enlarged. The gallbladder is surgically absent . The noncontrast liver, spleen, pancreas, kidneys, and adrenal glands are unremarkable. No abdominal aortic aneurysm. CT pelvis: No abnormal bowel dilatation or free air. There is low volume free fluid in the pelvis. Th ere are loops of left mid 2 lower abdominal small bowel demonstrating wall thickening and adjacent me senteric fat stranding. There is normal volume fecal matter and gas in the colon. The appendix does n ot appear inflamed. The urinary bladder is decompressed. The uterus is surgically absent. There is mild Lumbar degenerative disc disease. IMPRESSION: 1. Postoperative changes of cholecystectomy and hysterectomy. 2. Mid small bowel enteritis. These findings are not associated with signs of bowel obstruction. 3. Low volume free fluid in the pelvis may be physiologic or pathologic. 4. No evidence of bowel obstruction, acute appendicitis, or other acute process in the abdomen or pel vis.
--- NOTE | 2025-02-04 13:58 | ED.PDOC ---
General HPI Comments Nany Kang Is a 50-year old female with past medical history of hypertension, DM2, hypothyroidism and recurrent UTI. The patient came to the ED with chief complaint of 1 month of intermittent abdominal pain, 6/10, localized in the pelvic area, that irradiates to her lower back associate with dysuria, frequency and nausea. Three days ago, the patient started experiencing worsen of pelvic abdominal pain. Today, the pain increase to 10/10, this prompted her visit to the ED. The patient denies fever, chills, diarrhea, vomit, or other symptoms. In the ED BP: 103/83mmHg, HR:68bpm. CT abd/pel, urinalysis and blood work was requested. Attestation note: Dr. Rangel: I was the supervising attending for this ED encounter. Please see the resident's notes. I was available for questions and consultations. Differential diagnosis: DDX include Diverticulitis, colitis, gastroenteritis, acute abdomen, SBO, enteritis, constipation, volvulus, appendicitis, Gallbladder disease, choledocolithiasis, ascending cholangitis, pancreatitis, intraAbdominal mass/neoplasm, hepatitis, UTI, pylonephritis, kidney stone, aneurysm, dissection, Inflammatory bowel disease, gastroparesis, ischemic bowel,,,,,, ovarian torsion, ovarian cyst/mass, tubo-ovarian abscess, , ectopic , PID, STD. MDM: MDM: patient presented with the above HPI. Abdominal pain------workup was initiated. patient was found with the above mentioned diagnosis. the following medications were ordered: please refer to order lists of meds and tests obtained by myself Dr. Rangel. Patient ED course and VS have been stabilized. Patient has been reassessed in the ED and remained in a stable condition. Pertinent incidental findings were discussed with the patient and/or family. Patient/family voices understanding and is agreeable with plan. Patient has been observed in the ED adequate length of time to insure improvement/stability. Escalation of care considered: Consideration of escalation to observation or admission Patient was DISCHARGED home in a stable condition. All the reports of any imaging studies that were ordered by myself were reviewed by myself. Chief Complaint: Abdominal Pain Time Seen by MD: 12:41 Primary Care Provider: ROLANDO Reviewed notes: Nurses Notes, Medications, Allergies Allergies: Coded Allergies: NO KNOWN ALLERGIES (Unverified , 03/03/18) Home Meds Active Scripts Benzocaine-Menthol (Mouth-Thro (Cepacol Sore Throat) 1 Jennifer Jennifer, 1 JENNIFER MT UD for 7 Days, #15 JENNIFER 0 Refills Prov:JO CHINCHILLA SUPERVISOR TELEVISION CHASSIS REPAIR 06/27/24 Lidocaine Hcl (Lidocaine Viscous) 2 % Valentine, 15 ML MT TID for 10 Days, #200 ML 0 Refills Prov:JO CHINCHILLA SUPERVISOR TELEVISION CHASSIS REPAIR 06/27/24 Ibuprofen Micronized (Ibuprofen) 800 Mg Tab, 800 MG PO TIDWM for 10 Days, #30 TAB 0 Refills Prov:JO CHINCHILLA SUPERVISOR TELEVISION CHASSIS REPAIR 06/27/24 Cyclobenzaprine Hcl (Cyclobenzaprine Hcl) 10 Mg Tab, 10 MG PO HS for 5 Days, #5 TAB 0 Refills Prov:MICHELE HAMMOND RESIDENT 06/18/24 Loperamide Hcl (Imodium) 2 Mg Cp, 2 MG PO Q4HP PRN for 7 Days, #30 CAP Prov:MIN LOPES MD 05/05/24 Ondansetron HCl (Ondansetron Hydrochloride) 8 Mg Tab, 8 MG PO Q6HP PRN for 7 Days, #28 TAB Prov:MIN LOPES MD 05/05/24 Metronidazole (Flagyl) 500 Mg Tab, 500 MG PO BID for 7 Days, #14 TAB Prov:MAMTA GUAJARDO MD 04/02/22 Tramadol Hcl (Ultram) 50 Mg Tab, 1 TAB PO BID, #20 TAB Prov:CHRIS SANDOVAL 01/12/22 Prednisone (Prednisone) 20 Mg Tab, 40 MG PO DAILY, #20 MG Prov:CHRIS SANDOVAL 01/12/22 Nitrofurantoin Monohydrate Mac (Macrobid) 100 Mg Cap, 100 MG PO BID for 7 Days, #14 CAP Prov:MAMTA GUAJARDO MD 08/08/21 Nitrofurantoin Monohydrate Mac (Macrobid) 100 Mg Cap, 100 MG PO BID for 7 Days, #14 CAP Prov:JACQUI RANGEL DO 08/08/21 Reported Medications Levothyroxine Sodium (Levothyroxine Sodium) 125 Mcg Tab, 1 DAILY 06/18/24 Tirzepatide (Mounjaro) 10 Mg/0.5 Ml Inj 06/18/24 Escitalopram Oxalate (ESCITALOPRAM OXALATE) 5 Mg Tab, 1 DAILY 06/18/24 Insulin Degludec (Tresiba Flextouch) 100 Unit/Ml Inj, SC 06/18/24 Levothyroxine Sodium (SYNTHROID TABLET) 100 Mcg Tb, 1 TAB PO DAILY, #30 TAB 5 Refills 08/11/20 Metformin Hydrochloride (Metformin Hcl) 500 Mg Tab, 500 MG PO DAILY for 30 Days, MG 08/11/20 Information Source: Patient Mode of Arrival: Ambulatory Severity: Mild Timing: Months Duration: Intermittent Onset: Spontaneous Symptoms: Dysuria, Frequency Past Medical History PAST MEDICAL HISTORY: Cancer, DM, High Lipids, HTN, Thyroid Surgical History: Cholecystectomy, , Hysterectomy, Thyroidectomy GASOLINE ENGINE ASSEMBLER History: No Pertinent GASOLINE ENGINE ASSEMBLER History Family History Family History: Reviewed,noncontributory to illness Social History Smoker: Non-Smoker Alcohol: Denies ETOH Use Drugs: Denies Drug Use Lives In: Home Constitutional: denies: chills, diaphoresis, fatigue, fever, malaise, sweats, weakness, others EENTM: denies: blurred vision, double vision, ear bleeding, ear discharge, ear drainage, ear pain, ear ringing, eye pain, eye redness, hearing loss, mouth pain, mouth swelling, nasal discharge, nose bleeding, nose congestion, nose pain, photophobia, tearing, throat pain, throat swelling, voice changes, others Respiratory: denies: cough, hemoptysis, orthopnea, SOB at rest, shortness of breath, SOB with excertion, stridor, wheezing, others Cardiovascular: denies: chest pain, dizzy spells, diaphoresis, Dyspnea on exertion, edema, irregular heart beat, left arm pain, lightheadedness, palpitations, PND, syncope, others Gastrointestinal: reports: abdominal pain (pelvic pain), nausea; denies: abdomen distended, blood streaked bowels, constipated, diarrhea, dysphagia, difficulty swallowing, hematemesis, melena, poor appetite, poor fluid intake, rectal bleeding, rectal pain, vomiting, others Genitourinary: reports: dysuria, frequency; denies: abnormal vagina bleeding, burning, dyspareunia, flank pain, hematuria, incontinence, pain, , v agina discharge, urgency, others Neurological: denies: dizziness, fainting, headache, left sided numbness, left sided weakness, numbness, paresthesia, pre-existing deficit, right sided numbness, right sided weakness, seizure, speech problems, tingling, tremors, weakness, others Musculoskeletal: denies: back pain, gout, joint pain, joint swelling, muscle pain, muscle stiffness, neck pain, others Integumetry: denies: bruises, change in color, change in hair/nails, dryness, laceration, lesions, lumps, rash, wounds, others Allergic/Immunocompromised: denies: Difficulty Healing, Frequent Infections, Hives, Itching, others Hematologic/Lymphatic: denies: anemia, blood clots, easy bleeding, easy bruising, swollen glands, others Psychiatric: denies: anxiety, bipolar disorder, depression, hopeless, panic disorder, schizophrenia, sleepless, suicidal, others Physical Exam General Appearance: No Apparent Distress, Normal HEENT: Normal ENT Inspection, Pharynx Normal, TMs Normal Neck: Full Range of Motion, Non-Tender, Normal, Normal Inspection Respiratory: Chest Non-Tender, Lungs Clear, No Accessory Muscle Use, No Respiratory Distress, Normal Breath Sounds Cardiovascular: No Edema, No JVD, No Murmur, No Gallop, Normal Peripheral Pulses, Regular Rate/Rhythm Breast Exam: Deferred Gastrointestinal: Normal Bowel Sounds, Suprapubic (suprapubic tenderness) Genitalia: Deferred Pelvic: Deferred Rectal: Deferred Extremities: No calf tenderness, Normal capillary refill, Normal inspection, Normal range of motion, Non-tender, No pedal edema Neurologic: Alert, product management intern II-XII nml as Tested, No Motor Deficits, Normal Affect, Normal Mood, No Sensory Deficits Cerebellar Function: Normal Reflexes: Normal Skin: Dry, Normal Color, Warm Lymphatic: No Adenopathy Was a procedure done? Was a procedure done?: No Differential Diagnosis Kidney stone (Female): Bowel obstruction, Pyelonephritis, Urolithiasis, Other (UTI) Kidney stone (Male): N/A Urinary Problem (Female): UTI X-Ray, Labs, Meds, VS Vital Signs Date Time Temp Pulse Resp B/P (MAP) Pulse Ox O2 Delivery O2 Flow Rate FiO2 02/04/25 12:15 97.2 68 18 103/83 96 97.2 Lab Test 02/04/25 13:11 10/3/25 12:51 Range/Units Urine Color Yellow Yellow Urine Clarity Clear Clear Urine pH 6.5 5.0-9.0 Urine Specific [place] 1.027 1.001-1.035 Urine Protein Negative Negative Urine Ketones Negative Negative Urine Blood Negative Negative /uL Urine Nitrite 2+ H Negative Urine Bilirubin Negative Negative Urine Urobilinogen Normal Negative mg/dL Urine Leukocyte Esterase 1+ Negative /uL Urine RBC 2 0 - 4 /hpf Urine Microscopic WBC 3 0-5 /HPF Urine Squamous Epithelial Cells Few <5 /hpf Urine Bacteria Many H None Seen /hpf Urine Mucus Few None Seen Urine Glucose Normal Normal mg/dL White Blood Count 6.6 4.4-10.8 10^3/uL Red Blood Count 4.77 4.0-5.20 10^6/uL Hemoglobin 14.6 12.2-16.2 g/dL Hematocrit 42.9 36.0-46.0 % Mean Corpuscular Volume 90.1 80.0-100.0 fL Mean Corpuscular Hemoglobin 30.7 28.0-32.0 pg Mean Corpuscular Hemoglobin Concent 34.1 32.0-36.0 g/dL Red Cell Distribution Width 13.6 11.8-14.3 % Platelet Count 275 140-450 10^3/uL Mean Platelet Volume 8.0 6.9-10.8 fL Neutrophils (%) (Auto) 67.7 37.0-80.0 % Lymphocytes (%) (Auto) 26.8 10.0-50.0 % Monocytes (%) (Auto) 4.6 0.0-12.0 % Eosinophils (%) (Auto) 0.6 0.0-7.0 % Basophils (%) (Auto) 0.3 0.0-2.0 % Neutrophils # (Auto) 4.5 1.6-8.6 10 ^3/uL Lymphocytes # (Auto) 1.8 0.4-5.4 10 ^3/uL Monocytes # (Auto) 0.3 0-1.3 10 ^3/uL Eosinophils # (Auto) 0 0-0.8 10 ^3/uL Basophils # (Auto) 0 0-0.2 10 ^3/uL Nucleated Red Blood Cells 0.0 % Sodium Level 144 136-145 mmol/L Potassium Level 4.1 3.5-5.1 mmol/L Chloride Level 108 H 98-107 mmol/L Carbon Dioxide Level 27 20-31 mmol/L Anion Gap 9 5-15 Blood Urea Nitrogen 12 9-23 mg/dL Creatinine 0.81 0.550-1.02 mg/dL Glomerular Filtration Rate Calc 87 >90 mL/min BUN/Creatinine Ratio 14.8 10.0-20.0 Serum Glucose 107 H 74-106 mg/dL Lactic Acid Level 0.7 0.4-2.0 mmol/L Calcium Level 9.5 8.7-10.4 mg/dL Total Bilirubin 0.4 0.2-1.0 mg/dL Aspartate Amino Transferase (AST) 20 13-40 U/L Alanine Aminotransferase (ALT) 24 7-40 U/L Alkaline Phosphatase 84 46-116 U/L Troponin I High Sensitivity 13 </=34 ng/L Total Protein 7.5 5.7-8.2 g/dL Albumin 4.3 3.2-4.8 g/dL Lipase 63 H 12-53 U/L Current Medications Medications (Trade) Dose Ordered Sig/Dave Route Start Time Stop Time Status Last Admin Ceftriaxone Sodium 50 ml @ 100 mls/hr ONCE ONCE IV 02/04/25 14:00 02/04/25 14:29 DC 02/04/25 14:00 Sodium Chloride 1,000 ml @ 1,000 mls/hr Q1H ONCE IV 02/04/25 14:00 02/04/25 14:59 DC 02/04/25 14:27 Metoclopramide HCl (Reglan Injection) 5 mg ONCE ONCE IV 02/04/25 14:30 02/04/25 14:31 DC 02/04/25 14:40 X-Ray, Labs, Meds, VS Comment The patient has been re-assessed. CBC: Unremarkable CMP: Lipase 63 CT abd/pelv: 1. Postoperative changes of cholecystectomy and hysterectomy. 2. Mid small bowel enteritis. These findings are not associated with signs of bowel obstruction. 3. Low volume free fluid in the pelvis may be physiologic or pathologic. 4. No evidence of bowel obstruction, acute appendicitis, or other acute process in the abdomen or pelvis. 15:18 UA: positive The patient reports feeling better, less nausea, no vomit, abdominal pain has improved as well. Time of 1ST Reevaluation: 14:33 Reevaluation 1ST: Unchanged Time of 2ND Reevaluation: 15:18 Reevaluation 2ND: Improved Patient Education/Counseling: Diagnosis, Treatment, Prognosis, Need For Follow Up Family Education/Counseling: No Family Present SEPSIS Sepsis Screen Date sepsis recognized/suspect: Feb 04, 2025 Time Sepsis recognized/suspect: 1216 Recent Procedure: No On Antibiotic Therapy: No Respiratory Rate >20: No Heart Rate >90: No Temp<36 C (96.8 F) or >38.3 C: No SBP <90 or MAP <65 mmHG: No New Acute Mental Status Change: No Is the patient on CPAP, BIPAP,: No Physician Orders Authorization Representative (02/04/25 ) Electrocardigram (02/04/25 12:41) Ct Ab Pel Wo Con-No Oral Or Iv (02/04/25 12:41) Vital Signs Date Time Temp Pulse Resp B/P (MAP) Pulse Ox O2 Delivery O2 Flow Rate FiO2 02/04/25 12:15 97.2 68 18 103/83 96 97.2 Laboratory Tests Test 02/04/25 12:51 Lactic Acid Level 0.7 mmol/L (0.4-2.0) White Blood Count 6.6 10^3/uL (4.4-10.8) Medications Medications Dose Ordered Sig/Dave Route Start Time Stop Time Status Last Admin Dose Admin Ceftriaxone Sodium 50 ml @ 100 mls/hr ONCE ONCE IV 02/04/25 14:00 02/04/25 14:29 DC 02/04/25 14:00 Metoclopramide HCl 5 mg ONCE ONCE IV 02/04/25 14:30 02/04/25 14:31 DC 02/04/25 14:40 Sodium Chloride 1,000 ml @ 1,000 mls/hr Q1H ONCE IV 02/04/25 14:00 02/04/25 14:59 DC 02/04/25 14:27 Departure 1 Departure Time of Disposition: 15:19 Impression: Primary Impression: Urinary tract infection Additional Impression: Enteritis Disposition: HOME / SELF CARE / HOMELESS Condition: Good Referrals F/U with PCP in one week. Additional Instructions: Additional instructions: Please read all instructions provided in this packet carefully. You MUST follow-up with your primary care/family doctor in 1 to 2 days. If you are unable to see your primary care/family doctor, please return to our emergency room for re-assessment and re-evaluation in 1 to 2 days. Return to the emergency room here in our facility or to the nearest ER [facility] if your symptoms change or worsen. CONSULTATIONS: you MUST Follow-up for consultation as soon as possible with: -gastroenterology in 1-2 days. Please call for appointment. You MUST call the consultants office yourself to make an appointment. You may need to arrange that through your insurance and/or your primary/family doctor. If you are unable to see the partner management consultant in 1 to 2 days, you must return to our emergency room (or any other ER of your choice) for re-assessment and re- evaluation. Adequate fluid hydration. Although you have been discharged from the Emergency Department, this does not mean that you have a "clean bill of health". No definitive diagnosis for your symptoms has been made today. It is possible that you are in the process of developing a serious illness. This is why you must return to the ED without fail if any new or worsening symptoms develop. Avoid fatty greasy spicy food. Avoid caffeinated products. Avoid NSAIDs. Below is a copy of your radiological report for follow up: e-Prescriptions Nitrofurantoin Monohydrate Mac (Macrobid) 100 Mg Cap 100 MG PO BID for 7 Days, #14 CAP Prov: JACQUI RANGEL DO 02/04/25 Discharged With: Self Comments Goals of care discussed with the patient > 35 min. Discussed plan of care with Dr. Rangel Code status: Full code PCP: Dr. Erazo Plan discussed with: Patient, the patient agrees with the plan. Critical Care Note Critical Care Time?: No Stability Stability form required: No Heart Score Heart Score: Heart Score Response (Comments) Value History N/A 0 EKG N/A 0 Age N/A 0 Risk Factors N/A 0 Troponin N/A 0 Total 0 IGOR BLANCAS RESIDENT Feb 04, 2025 13:58 JACQUI RANGEL DO Feb 04, 2025 15:27
[2025-02-04] MEDS: ONDANSETRON HCL 4 MG/2 ML VIAL IV ONE (14:21)
[2025-02-04] MEDS: SODIUM CHLORIDE 0.9% 1,000 ML IV ONE (14:27)
[2025-02-04] MEDS: METOCLOPRAMIDE HCL 5MG/ml INJ 2ml VIAL IV ONE (14:40)
[2025-02-04 15:51] VITALS: BP 128/86; PULSE 75; RESP 20; TEMP 97.9; O2SAT 96
[2025-02-05] MEDS ORDERED: AMLO5CAP2 PO (04:38)
== END 2025-02-04 15:57 | disposition home or self-care (01) ==
LOC: ER 12:12
DX: N39.0 Urinary tract infection, site not specified (principal); K52.9 Noninfective gastroenteritis and colitis, unspecified; I10 Essential (primary) hypertension; E03.9 Hypothyroidism, unspecified; E11.9 Type 2 diabetes mellitus without complications; R18.8 Other ascites; Z79.84 Long term (current) use of oral hypoglycemic drugs; Z79.899 Other long term (current) drug therapy; Z85.850 Personal history of malignant neoplasm of thyroid; Z87.440 Personal history of urinary (tract) infections; Z90.49 Acquired absence of other specified parts of digestive tract; Z90.710 Acquired absence of both cervix and uterus
CPT/HCPCS: 36415; 74176; 80053; 81001; 83605; 83690; 84484; 85025; 96365; 96375; 99285; J0696; J2405; J2765; J7030

== ENCOUNTER 2025-02-04 20:58 | Inpatient (IN) | payer OTHER ==
[~2025-02-04] VITALS: Ht 157.5 cm; Wt 68.9 kg
--- NOTE | 2025-02-04 21:51 | ED.PDOC ---
History of Present Illness HPI Comments 50 y/o F, with a Hx of DM II, HTN, recurrent UTI's, cholecystectomy, and thyroidectomy, presents with c/c of diffused abdominal martin, nausea, and dizziness. Patient endorses on returning to ED for worsening pain she has been experiencing, intermittently, for, approximately, 1 month. Patient states on being seen, initially, at ED following pain becoming constant over the past 2x days, and discharge with enteritis and UTI diagnosis. Pain is described as waning in severity and sharp in quality, with no relief with [id number] Ibuprofen use at 1700, this evening. . Started her antibiotic prescription course, today. Denial of any vomiting, diarrhea, constipation, or further acute symptoms. Chief Complaint: Abdominal Pain Time Seen by MD: 21:20 Primary Care Provider: ROLANDO Reviewed Notes: Nurses Notes, Medications, Allergies Allergies: Coded Allergies: NO KNOWN ALLERGIES (Unverified , 03/03/18) Home Meds Active Scripts Nitrofurantoin Monohydrate Mac (Macrobid) 100 Mg Cap, 100 MG PO BID for 7 Days, #14 CAP Prov:JACQUI RANGEL DO 02/04/25 Benzocaine-Menthol (Mouth-Thro (Cepacol Sore Throat) 1 Jennifer Jennifer, 1 JENNIFER MT UD for 7 Days, #15 JENNIFER 0 Refills Prov:JO CHINCHILLA SOLDERING INSPECTOR 06/27/24 Lidocaine Hcl (Lidocaine Viscous) 2 % Valentine, 15 ML MT TID for 10 Days, #200 ML 0 Refills Prov:JO CHINCHILLA SOLDERING INSPECTOR 06/27/24 Ibuprofen Micronized (Ibuprofen) 800 Mg Tab, 800 MG PO TIDWM for 10 Days, #30 T AB 0 Refills Prov:JO CHINCHILLA SOLDERING INSPECTOR 06/27/24 Cyclobenzaprine Hcl (Cyclobenzaprine Hcl) 10 Mg Tab, 10 MG PO HS for 5 Days, #5 TAB 0 Refills Prov:MICHELE HAMMOND RESIDENT 06/18/24 Loperamide Hcl (Imodium) 2 Mg Cp, 2 MG PO Q4HP PRN for 7 Days, #30 CAP Prov:MIN LOPES MD 05/05/24 Ondansetron HCl (Ondansetron Hydrochloride) 8 Mg Tab, 8 MG PO Q6HP PRN for 7 Days, #28 TAB Prov:MIN LOPES MD 05/05/24 Metronidazole (Flagyl) 500 Mg Tab, 500 MG PO BID for 7 Days, #14 TAB Prov:MAMTA GUAJARDO MD 04/02/22 Tramadol Hcl (Ultram) 50 Mg Tab, 1 TAB PO BID, #20 TAB Prov:CHRIS SANDOVAL 01/12/22 Prednisone (Prednisone) 20 Mg Tab, 40 MG PO DAILY, #20 MG Prov:CHRIS SANDOVAL 01/12/22 Nitrofurantoin Monohydrate Mac (Macrobid) 100 Mg Cap, 100 MG PO BID for 7 Days, #14 CAP Prov:MAMTA GUAJARDO MD 08/08/21 Nitrofurantoin Monohydrate Mac (Macrobid) 100 Mg Cap, 100 MG PO BID for 7 Days, #14 CAP Prov:JACQUI RANGEL DO 08/08/21 Reported Medications Amlodipine Besylate-Benazepril (Lotrel) 1 Cap Cap, PO DAILY, #30 CAP 5 Refills 02/05/25 Levothyroxine Sodium (Levothyroxine Sodium) 125 Mcg Tab, 1 DAILY 06/18/24 Tirzepatide (Mounjaro) 10 Mg/0.5 Ml Inj 06/18/24 Escitalopram Oxalate (ESCITALOPRAM OXALATE) 5 Mg Tab, 1 DAILY 06/18/24 Insulin Degludec (Tresiba Flextouch) 100 Unit/Ml Inj, SC 06/18/24 Levothyroxine Sodium (SYNTHROID TABLET) 100 Mcg Tb, 1 TAB PO DAILY, #30 TAB 5 Refills 08/11/20 Metformin Hydrochloride (Metformin Hcl) 500 Mg Tab, 500 MG PO DAILY for 30 Days, MG 08/11/20 Information Source: Patient, Emergency Med Personnel Mode of Arrival: EMS Severity: Moderate Timing: Hours Duration: Since onset Prehospital treatment: 12 Lead EKG, Criminal Intelligence Analyst Past Medical History PAST MEDICAL HISTORY: Cancer, DM, HTN, Thyroid (s/p thyroidectomy) Surgical History: Cholecystectomy, , Hysterectomy, Thyroidectomy WASTE ELIMINATION History: No Pertinent WASTE ELIMINATION History Family History Family History: Reviewed,noncontributory to illness Social History Smoker: Non-Smoker Alcohol: Denies ETOH Use Drugs: Denies Drug Use Lives In: Home All Other Systems: Reviewed and Negative (Comprehensive review of systems are negative unless stated in HPI) Physical Exam General Appearance: Moderate Distress HEENT: Normal ENT Inspection, Pharynx Normal, TMs Normal Neck: Full Range of Motion, Non-Tender, Normal, Normal Inspection Respiratory: Chest Non-Tender, Lungs Clear, No Accessory Muscle Use, No Respiratory Distress, Normal Breath Sounds Cardiovascular: No Edema, No JVD, No Murmur, No Gallop, Normal Peripheral Pulses, Regular Rate/Rhythm Breast Exam: Deferred Gastrointestinal: Diffuse Genitalia: Deferred Pelvic: Deferred Rectal: Deferred Extremities: No calf tenderness, Normal capillary refill, Normal inspection, Normal range of motion, Non-tender, No pedal edema Musculoskeletal : Apperance: Normal Neurologic: Alert, lumber checker II-XII nml as Tested, No Motor Deficits, Normal Affect, Normal Mood, No Sensory Deficits Cerebellar Function: Normal Reflexes: Normal Skin: Dry, Normal Color, Warm Peripheral Pulses: 3+ Radial (R), 3+ Radial (L) Lymphatic: No Adenopathy Was a procedure done? Was a procedure done?: No Differential Dx Considerations may include: Diverticulitis, colitis, gastroenteritis, acute abdomen, SBO, enteritis, constipation, volvulus, appendicitis, Gallbladder disease, choledocholithiasis, ascending cholangitis, pancreatitis, intraAbdominal mass/neoplasm, hepatitis, UTI, pyelonephritis, kidney stone, aneurysm, dissection, Inflammatory bowel disease, gastroparesis, ischemic bowel,,,,,, ovarian torsion, ovarian cyst/mass, tubo-ovarian abscess, , ectopic pre gnancy, PID, STD. X-Ray, Labs, Meds, VS Vital Signs Date Time Temp Pulse Resp B/P (MAP) Pulse Ox O2 Delivery O2 Flow Rate FiO2 02/04/25 21:16 Room Air* 0 21 02/04/25 21:16 97.6 81 13 116/80 (92) 96 97.6 02/04/25 21:00 97.7 91 18 116/77 96 97.7 Current Medications Medications (Trade) Dose Ordered Sig/Dave Route Start Time Stop Time Status Last Admin Ondansetron HCl (Zofran) 4 mg ONCE ONCE IV 02/04/25 22:00 02/04/25 22:01 DC 02/04/25 22:30 Sodium Chloride 1,000 ml @ 1,000 mls/hr Q1H ONCE IVB 02/04/25 22:00 02/04/25 22:59 DC 02/04/25 22:19 Morphine Sulfate 4 mg ONCE ONCE IV 02/04/25 22:00 02/04/25 22:01 DC 02/04/25 22:42 Sodium Chloride 1,000 ml @ 150 mls/hr Q6H40M ONCE IV 02/04/25 22:00 02/05/25 04:39 DC 02/04/25 22:30 Ceftriaxone Sodium 50 ml @ 100 mls/hr ONCE ONCE IV 02/04/25 22:00 02/04/25 22:29 DC 02/04/25 22:19 Metronidazole 100 ml @ 100 mls/hr ONCE ONCE IV 02/04/25 22:00 02/04/25 22:59 DC 02/04/25 22:30 Patient alert. Complaining of abdominal pain. Was seen here few hours ago for similar symptom. Vitals stable. On examination of abdomen soft diffusely tender. WBC within normal limits pain Hemoglobin within normal limits. Lipase slightly elevated. CT scan of the abdomen reviewed from few hours ago does show enteritis. She came back because she was having severe abdominal pain. UA from previous visit shows UTI. Explained to the patient. Continue monitoring. Time of 1ST Reevaluation: 21:50 Reevaluation 1ST: Unchanged Patient Education/Counseling: Diagnosis, Treatment, Need For Follow Up Family Education/Counseling: No Family Present SEPSIS Sepsis Screen Date sepsis recognized/suspect: Feb 04, 2025 Time Sepsis recognized/suspect: 2099 Recent Procedure: No On Antibiotic Therapy: Yes Respiratory Rate >20: No Heart Rate >90: No Temp<36 C (96.8 F) or >38.3 C: No SBP <90 or MAP <65 mmHG: No New Acute Mental Status Change: No Is the patient on CPAP, BIPAP,: No Physician Orders Urine Bacterial Culture (02/04/25 22:19) Ceftriaxone 1gm/50ml (Rocephin) (02/05/25 22:00) Metronidazole 500mg/100ml (Flagyl 500mg/ (02/05/25 06:00) Glucose Blood (Accu-Chek Comfort Curve T (02/05/25 00:00) Insulin R (Human) (Insulin R) (02/05/25 00:00) Dextrose 50% Syringe (02/04/25 22:30) Allergies (02/04/25 22:19) Code Status (02/04/25 22:19) Sodium Chloride Lock (Saline Lock Ns) (02/05/25 06:00) Oxygen Per Hour (02/04/25 22:19) Hydrocodone-Acet 5/325mg Tab ([place] 5/32 (02/04/25 22:30) Ondansetron Hcl (Zofran) (02/04/25 22:30) Docusate Sodium Capsule (Colace Capsule) (02/04/25 22:30) Complete Blood Count (02/05/25 04:00) Comprehensive Metabolic Panel (02/05/25 04:00) Condition: Serious (02/04/25 22:19) Acetaminophen Tablet (Tylenol Tablet) (02/04/25 22:30) Clear Liq Diet (02/05/25 Breakfast) Bedrest With Bathroom Privileg (02/04/25 22:19) Morphine Sulfate Injection (02/04/25 22:30) Sequential Compression Device (02/04/25 ) Nitroglycerin Sublingual (Ntrostat Subli (02/04/25 22:30) Morphine Sulfate Injection (02/04/25 22:30) Notify Md Of Changes From Base (02/04/25 22:19) Emergency Dysrhythmia Protocol (02/04/25 22:19) Oxygen By Nasal Cannula (02/04/25:19) Vital Signs Date Time Temp Pulse Resp B/P (MAP) Pulse Ox O2 Delivery O2 Flow Rate FiO2 02/04/25 21:16 Room Air* 0 21 02/04/25 21:16 97.6 81 13 116/80 (92) 96 97.6 02/04/25 21:00 97.7 91 18 116/77 96 97.7 Medications Medications Dose Ordered Sig/Dave Route Start Time Stop Time Status Last Admin Dose Admin Ceftriaxone Sodium 50 ml @ 100 mls/hr ONCE ONCE IV 02/04/25 22:00 02/04/25 22:29 DC 02/04/25 22:19 Metronidazole 100 ml @ 100 mls/hr ONCE ONCE IV 02/04/25 22:00 02/04/25 22:59 DC 02/04/25 22:30 Morphine Sulfate 4 mg ONCE ONCE IV 02/04/25 22:00 02/04/25 22:01 DC 02/04/25 22:42 Ondansetron HCl 4 mg ONCE ONCE IV 02/04/25 22:00 02/04/25 22:01 DC 02/04/25 22:30 Sodium Chloride 1,000 ml @ 150 mls/hr Q6H40M ONCE IV 02/04/25 22:00 02/05/25 04:39 DC 02/04/25 22:30 Sodium Chloride 1,000 ml @ 1,000 mls/hr Q1H ONCE IVB 02/04/25 22:00 02/04/25 22:59 DC 02/04/25 22:19 Departure 1 Departure Time of Disposition: 05:42 Impression: Primary Impression: Urinary tract infection Qualified Codes: N30.00 - Acute cystitis without hematuria Additional Impressions: Enteritis Acute pancreatitis Qualified Codes: K85.90 - Acute pancreatitis without necrosis or infection, unspecified Disposition: ADMITTED INPATIENT Admit to: Med Surg Condition: Guarded Critical Care Note Critical Care Time?: Yes (90 min-critical care time only) Stability Stability form required: No Heart Score Heart Score: Heart Score Response (Comments) Value History N/A 0 EKG N/A 0 Age N/A 0 Risk Factors N/A 0 Troponin N/A 0 Total 0 I personally scribed for SUSIE PRIDE MD ([email or web address]) on 02/04/25 at 21:51. Electronically submitted by Arthur Alvarado [email or web address]). SUSIE PRIDE MD Feb 04, 2025 21:51
[2025-02-04] MEDS: SODIUM CHLORIDE 0.9% 1,000 ML IVB ONE (22:19)
--- NOTE | 2025-02-04 22:28 | DVHHP2 ---
History of Present Illness Reason for Visit: Acute abdominal pain History of Present Illness The patient is a 50-year-old female with past medical history of diabetes mellitus, hypertension, cancer, thyroid disease status post thyroidectomy who presented to [facility] ED with complaint of intractable abdominal pain for approximately 1 month. Patient reports she has been experiencing diffuse abdominal pain associated with nausea, vomiting, and dizziness. Patient states that she was seen initially in the ED early today following pain becoming constant over the past 2 days and discharge with enteritis and UTI diagnosis. However, symptoms progressively get worse at home, described pain as severity and sharp in quality, with no relief with [id number] Ibuprofen use at 1700, this evening, getting worse that prompted this visit. Patient was seen and evaluated in the ED, previous laboratory data shows WBC 6.6, platelets 275, sodium 144, potassium 4.1, BUN 12, creatinine 0.81, glucose 107, calcium 9.5, lipase 63, blood pressure 116/80, heart rate 82, temperature 97.6 F, O2 saturation 96% on room air. Urinalysis positive for urinary tract infection. Abdomen/pelvis CT revealing postoperative changes of cholecystectomy and hysterectomy; mild small-bowel enteritis; This findings are not associated with sign of bowel obstruction, no evidence of bowel obstruction, acute appendicitis, or other acute process in the abdomen or pelvis. Please see medication orders section in the computer. On my assessment, patient denied chest pain, no headache, dizziness, shortness of breaths, no diarrhea, nausea or vomiting, no fever, no chills. Patient was admitted for further evaluation and medical management. Past Medical History Recurrent UTIs, Cancer, DM, HTN, Thyroid (s/p thyroidectomy) Past Surgical History Cholecystectomy, , Hysterectomy, Thyroidectomy Family History Reviewed, noncontributory to the management of this case. Past Social History The patient lives at home, denies smoking, alcohol or illicit drugs abuse. Review of Systems Constitutional: Yes: Weakness; No: Fever, Chills, Sweats, Malaise, Other Eyes: No: Pain, Vision change, Conjunctivae inflammation, Eyelid inflammation, Other, Redness ENT: No: Ear pain, Ear discharge, Nose pain, Nose discharge, Nose congestion, Mouth pain, Mouth swelling, Throat pain, Throat swelling, Other Respiratory: No: Cough, Dry, Shortness of breath, SOB with excertion, Wheezing, Hemoptysis, Pleuritic Pain, Sputum, Wheezing, Other Cardiovascular: No: Chest Pain, Palpitations, Orthopnea, Paroxysmal Noc. Dyspnea, Edema, Lt Headedness, Other Gastrointestinal: Nausea, Vomiting, Abdominal Pain; No: Diarrhea, Constipation, Melena, Hematochezia, Other Genitourinary: No Dysuria, No Frequency, No Incontinence, No Hematuria, No Retention, No Other Musculoskeletal: No: other, neck pain, shoulder pain, arm pain, back pain, hand pain, leg pain, foot pain Skin: No: Rash, Lesions, Jaundice, Bruising, Other Neurological: No: Weakness, Numbness, Incoordination, Change in speech, Confusion, Seizures, Other Allergies: Coded Allergies: NO KNOWN ALLERGIES (Unverified , 03/03/18) Medications Current Medications Medications Dose Ordered Sig/Dave Route Start Time Stop Time Status Last Admin Dose Admin Ceftriaxone Sodium 50 ml @ 100 mls/hr DAILY@09 IV 02/05/25 09:00 UNV Metronidazole 100 ml @ 100 mls/hr Q8HR IV 02/05/25 06:00 UNV Diagnostic Test (Pha) 1 strip Q6HR 02/05/25 00:00 UNV Insulin Human Regular Q6HR SC 02/05/25 00:00 UNV Dextrose 50 ml UD PRN IV 02/04/25 22:30 UNV Sodium Chloride 10 ml Q8HR IV 02/05/25 06:00 UNV Acetaminophen/ Hydrocodone Bitart 1 tab Q4HP PRN PO 02/04/25 22:30 UNV Ondansetron HCl 4 mg Q4HP PRN IV 02/04/25 22:30 UNV Docusate Sodium 100 mg BIDPRN PRN PO 02/04/25 22:30 UNV Acetaminophen 650 mg Q6HP PRN PO 02/04/25 22:30 UNV Morphine Sulfate 2 mg Q4HPRN PRN IV 02/04/25 22:30 UNV Nitroglycerin 0.4 mg Q5MINP PRN SL 02/04/25 22:30 UNV Morphine Sulfate 2 mg Q30M PRN IV 02/04/25 22:30 UNV Exam Vital Signs Vital Signs Date Time Temp Pulse Resp B/P (MAP) Pulse Ox O2 Delivery O2 Flow Rate FiO2 02/04/25 21:16 Room Air* 0 21 02/04/25 21:16 97.6 81 13 116/80 92 96 97.6 General Appearance: Alert, Oriented X3, Cooperative, No acute distress HEENT: Atraumatic, PERRLA, EOMI, Mucous membr. moist/pink Respiratory: Clear to auscultation, Normal air movement Cardiovascular: Regular rate, Normal S1, Normal S2, No murmurs Abdominal: Normal bowel sounds, Soft, No hepatospenomegaly, No masses, Other (Reports tenderness) Extremities: No clubbing, No cyanosis, No edema, Normal pulses, No tenderness/swelling Skin: No rashes, No breakdown, No significant lesion Neuro: Normal speech, Normal tone, Sensation intact, Cranial nerves 3-12 NL, Reflexes 2+ Psych/Mental Status: Mental status NL, Mood NL Labs/Xrays PATIENT: JOSUE HUFFMAN SACCT: [id number] UNIT: [id number] : 1975 LOC: ER ROOM / BED: / AGE / SEX: 50 / F ADM STATUS: REG ER SERVICE [id number] ORDERING PHYSICIAN: JACQUI RANGEL DO PROCEDURE(s): ABPL - CT AB PEL WO CON-NO ORAL OR IV REASON: abd pain ORDER NUMBER(s): [id number], ACCESSION NUMBER(s): [id number] EXAM: CT CT AB PEL WO CON-NO ORAL OR IV HISTORY: abd pain COMPARISON: CT CT AB PEL WO CON-NO ORAL OR IV on DOS: 06/17/24, CT ABD PELVIS WO CONTRAST on DOS: 04/01/22, ECIDC on DOS: 07/31/21 TECHNIQUE: Helical CT images of the abdomen and pelvis were performed without IV contrast. Sagittal and coronal reformatted images were obtained. This CT exam was performed using one or more of the following dose reduction techniques: Automated exposure control, adjustment of the mA and/or kv according to patient size, or the use of iterative reconstruction techniques. Radiation Dose: Abdomen/Pelvis: CTDIvol 5.88 mGy, DLP 286.3 mGy*cm. FINDINGS: CT abdomen: The lung bases are clear. The heart is not enlarged. The gallbladder is surgically absent. The noncontrast liver, spleen, pancreas, kidneys, and adrenal glands are unremarkable. No abdominal aortic aneurysm. CT pelvis: No abnormal bowel dilatation or free air. There is low volume free fluid in the pelvis. There are loops of left mid 2 lower abdominal small bowel d emonstrating wall thickening and adjacent mesenteric fat stranding. There is normal volume fecal matter and gas in the colon. The appendix does not appear inflamed. The urinary bladder is decompressed. The uterus is surgically absent. There is mild Lumbar degenerative disc disease. IMPRESSION: 1. Postoperative changes of cholecystectomy and hysterectomy. 2. Mid small bowel enteritis. These findings are not associated with signs of bowel obstruction. 3. Low volume free fluid in the pelvis may be physiologic or pathologic. 4. No evidence of bowel obstruction, acute appendicitis, or other acute process in the abdomen or pelvis. SEPSIS Sepsis Screen Date sepsis recognized/suspect: Feb 04, 2025 Time Sepsis recognized/suspect: 2099 Recent Procedure: No On Antibiotic Therapy: Yes Respiratory Rate >20: No Heart Rate >90: No Temp<36 C (96.8 F) or >38.3 C: No SBP <90 or MAP <65 mmHG: No New Acute Mental Status Change: No Is the patient on CPAP, BIPAP,: No Physician Orders Sodium Chloride 0.9% (02/04/25 22:00) Sodium Chloride 0.9% (02/04/25 22:00) Ceftriaxone 1gm/50ml (Rocephin) (02/04/25 22:00) Metronidazole 500mg/100ml (Flagyl 500mg/ (02/04/25 22:00) Urine Bacterial Culture (02/04/25 22:19) Ceftriaxone 1gm/50ml (Rocephin) (02/05/25 09:00) Metronidazole 500mg/100ml (Flagyl 500mg/ (02/05/25 06:00) Glucose Blood (Accu-Chek Comfort Curve T (02/05/25 00:00) Insulin R (Human) (Insulin R) (02/05/25 00:00) Dextrose 50% Syringe (02/04/25 22:30) Allergies (02/04/25 22:19) Code Status (02/04/25 22:19) Sodium Chloride Lock (Saline Lock Ns) (02/05/25 06:00) Oxygen Per Hour (02/04/25 22:19) Hydrocodone-Acet 5/325mg Tab ([place] 5/32 (02/04/25 22:30) Ondansetron Hcl (Zofran) (02/04/25 22:30) Docusate Sodium Capsule (Colace Capsule) (02/04/25 22:30) Complete Blood Count (02/05/25 04:00) Comprehensive Metabolic Panel (02/05/25 04:00) Condition: Serious (02/04/25 22:19) Acetaminophen Tablet (Tylenol Tablet) (02/04/25 22:30) Clear Liq Diet (02/05/25 Breakfast) Bedrest With Bathroom Privileg (02/04/25 22:19) Morphine Sulfate Injection (02/04/25 22:30) Sequential Compression Device (02/04/25 ) Nitroglycerin Sublingual (Ntrostat Subli (02/04/25:30) Morphine Sulfate Injection (02/04/25 22:30) Notify Of Changes From Base (02/04/25 22:19) Emergency Dysrhythmia Protocol (02/04/25 22:19) Oxygen By Nasal Cannula (02/04/25:19) Admit (02/04/25:25) Vital Signs Date Time Temp Pulse Resp B/P (MAP) Pulse Ox O2 Delivery O2 Flow Rate FiO2 02/04/25 21:16 Room Air* 0 21 02/04/25 21:16 97.6 81 13 116/80 (92) 96 97.6 02/04/25 21:00 97.7 91 18 116/77 96 97.7 Medications Medications Dose Ordered Sig/Dave Route Start Time Stop Time Status Last Admin Dose Admin Ceftriaxone Sodium 50 ml @ 100 mls/hr ONCE ONCE IV 02/04/25 22:00 02/04/25 22:29 02/04/25 22:19 100 MLS/HR Sodium Chloride 1,000 ml @ 1,000 mls/hr Q1H ONCE IVB 02/04/25 22:00 02/04/25 22:59 02/04/25 22:19 1,000 MLS/HR Assessment/Plan Assessment/Plan Intractable abdominal pain Urinary tract infection Acute cystitis without hematuria Enteritis Acute pancreatitis Acute pancreatitis without necrosis or infection, unspecified Plan 1. Admit to med surge unit 2. Breathing treatment 3. Pain control management 4. IV antibiotic management 5. Management of fluids and electrolytes 6. Consultation for hospitalist 7. Diagnostic test abdomen/pelvis CT 8. DVT prophylaxis-on SCDs 9. Repeat labs CBC, CMP in a.m. 10. Home medication reviewed and reconciled 11. Continue with current medical management 12. Treatment plan discussed with patient and RN. Patient verbalized understanding. Plan discussed with: Patient, Other (RN) My Orders Orders - VIRY HOLBROOK DNP Procedure Category Date Status Time Urine Bacterial KAITLYNN 02/04/25 Logged Culture 22:19 Ceftriaxone 1gm/50ml PHA 02/05/25 Logged (Rocephin) 09:00 Metronidazole PHA 02/05/25 Logged 500mg/100ml (Flagyl 06:00 Glucose Blood PHA 02/05/25 Logged (Accu-Chek Comfort 00:00 Insulin R (Human) PHA 02/05/25 Logged (Insulin R) 00:00 Dextrose 50% Syringe PHA 02/04/25 Logged 22:30 Allergies JASWANT 02/04/25 In Process 22:19 Code Status CODE 02/04/25 Transmitted 22:19 Sodium Chloride Lock PHA 02/05/25 Logged (Saline Lock Ns) 06:00 Oxygen Per Hour RT 02/04/25 Transmitted 22:19 Hydrocodone-Acet PHA 02/04/25 Logged 5/325mg Tab ([place] 22:30 Ondansetron Hcl PHA 02/04/25 Logged (Zofran) 22:30 Docusate Sodium PHA 02/04/25 Logged Capsule (Colace 22:30 Complete Blood Count LAB 02/05/25 Verified 04:00 Comprehensive LAB 02/05/25 Verified Metabolic Panel 04:00 Condition: Serious JASWANT 02/04/25 In Process 22:19 Acetaminophen Tablet PHA 02/04/25 Logged (Tylenol Tablet) 22:30 Clear Liq Diet DIET 02/05/25 Transmitted Breakfast Bedrest With Bathroom JASWANT 02/04/25 In Process Privileg 22:19 Morphine Sulfate PHA 02/04/25 Logged Injection 22:30 Sequential JASWANT 02/04/25 In Process Compression Device Nitroglycerin PHA 02/04/25 Logged Sublingual (Ntrostat 22:30 Morphine Sulfate PHA 02/04/25 Logged Injection 22:30 Notify Of Changes JASWANT 02/04/25 In Process From Base 22:19 Emergency Dysrhythmia JASWANT 02/04/25 In Process Protocol 22:19 Oxygen By Nasal RT 02/04/25 Transmitted Cannula 22:19 Admit ADMIT 02/04/25 Transmitted 22:25 Problem List: (1) Intractable abdominal pain (2) Urinary tract infection (3) Acute cystitis without hematuria (4) Enteritis (5) Acute pancreatitis (6) Acute pancreatitis without necrosis or infection, unspecified Date of Service: Feb 04, 2025 Billing Provider: VIRY HOLBROOK DNP Common Visit Codes: [id number] INP/OBS CARE (HIGH) VIRY HOLBROOK DNP Feb 04, 2025 22:28
[2025-02-04] MEDS: SODIUM CHLORIDE 0.9% 1,000 ML IV ONE (22:30)
[2025-02-04] MEDS ORDERED: NITROGLYCERIN 0.4 MG SL TAB SL PRN (22:30)
[2025-02-04] MEDS ORDERED: DEXTROSE (50%) 50ML SYRG IV PRN (22:30)
[2025-02-04] MEDS ORDERED: MORPHINE SULFATE INJ 2 MG/ml SYRG IV PRN ×2 (22:30)
[2025-02-04] MEDS ORDERED: ACETAMINOPHEN 325 MG TAB PO PRN (22:30)
[2025-02-04] MEDS ORDERED: DOCUSATE SOD 100 MG CAP PO PRN (22:30)
[2025-02-04] MEDS: ONDANSETRON HCL 4 MG/2 ML VIAL IV ONE (22:30)
[2025-02-04] MEDS: MORPHINE SULFATE 4 MG/ML SYR/VIAL IV ONE (22:42)
[2025-02-04] MEDS: PANTOPRAZOLE 40 MG/10 ML VIAL INJ IV ONE (23:54)
[2025-02-04] MEDS: ACCU-CHEK COMFORT CURVE STRIP VI SCH (23:54)
[2025-02-04] MEDS: InsuLIN REG 1unit/0.01ml Soln (100units/ml) SC SCH (23:54)
[2025-02-05] VITALS (8 sets, daily range): BP systolic 92–124; BP diastolic 61–93; PULSE 69–79; RESP 16–20; TEMP 98–98.5; O2SAT 94–99
[2025-02-05] MEDS ORDERED: AMLO5CAP2 PO (04:38)
[2025-02-05] MEDS: HYDROcodone-ACET 5/325MG TAB PO PRN (05:56)
[2025-02-05] MEDS: SODIUM CHLOR 0.9% PF (SALINE LOCK) 10ML VIAL/SYR IV SCH (05:56)
[2025-02-05 06:41] LABS: Hematocrit 34.3 % (36.0-46.0); Hemoglobin 11.9 g/dL (12.2-16.2); Mean Corpuscular Hemoglobin 31.3 pg (28.0-32.0); Mean Corpuscular Volume 90.1 fL (80.0-100.0); Nucleated Red Blood Cells % 0.0 %
[2025-02-05 06:51] LABS: Alanine Aminotransferase 19 U/L (7-40); Alkaline Phosphatase 64 U/L (46-116); Anion Gap 10 (5-15); BUN/Creatinine Ratio 15.4 (10.0-20.0); Blood Urea Nitrogen 10 mg/dL (9-23); Carbon Dioxide 24 mmol/L (20-31); Potassium 3.7 mmol/L (3.5-5.1); Sodium 145 mmol/L (136-145); Total Protein 5.9 g/dL (5.7-8.2)
[2025-02-05 06:52] LABS: Albumin 3.4 g/dL (3.2-4.8); Bilirubin, Total 0.5 mg/dL (0.2-1.0); Calcium 8.1 mg/dL (8.7-10.4); Chloride 111 mmol/L (98-107); Glucose 70 mg/dL (74-106)
[2025-02-05] MEDS: PANTOPRAZOLE 40 MG/10 ML VIAL INJ IV SCH (10:08)
--- NOTE | 2025-02-05 12:09 | DVHPN2 ---
Reviewed: Care Plan, H&P, Labs, Medications, Previous Orders, Radiology Changes from previous H/P or p: No Changes Eyes: No Pain, No Vision change, No Conjunctivae inflammation, No Eyelid inflammation, No Other, No Redness ENT: No Ear pain, No Ear discharge, No Nose pain, No Nose discharge, No Nose congestion, No Mouth pain, No Mouth swelling, No Throat pain, No Throat swelling, No Other Cardiovascular: No Chest Pain, No Palpitations, No Orthopnea, No Paroxysmal Noc. Dyspnea, No Edema, No Lt Headedness, No Other Respiratory: No Cough, No Dry, No Shortness of breath, No SOB with excertion, No Wheezing, No Hemoptysis, No Pleuritic Pain, No Sputum, No Other Gastrointestinal: Nausea, Vomiting, Abdominal Pain; No Diarrhea, No Constipation, No Melena, No Hematochezia, No Other Genitourinary: No Dysuria, No Frequency, No Incontinence, No Hematuria, No Retention, No Other Musculoskeletal: No other, No neck pain, No shoulder pain, No arm pain, No back pain, No hand pain, No leg pain, No foot pain Skin: No Rash, No Lesions, No Jaundice, No Bruising, No Other Objective Vitals Vital Signs Date Time Temp Pulse Resp B/P (MAP) Pulse Ox O2 Delivery O2 Flow Rate FiO2 02/05/25 08:38 98.3 79 20 95/63 (74) 94 98.3 02/05/25 02:08 Room Air* 0 21 Intake/Output Intake and Output 02/05/25 07:00 Intake Total 100 ml Balance 100 ml Intake Oral 100 ml # Voids 2 Medications Current Medications Medications Dose Ordered Sig/Dave Route Start Time Stop Time Status Last Admin Dose Admin Ceftriaxone Sodium 50 ml @ 100 mls/hr DAILY@2200 IV 02/05/25 22:00 Metronidazole 100 ml @ 100 mls/hr Q8HR IV 02/05/25 06:00 02/05/25 05:55 100 MLS/HR Diagnostic Test (Pha) 1 strip Q6HR 02/05/25 00:00 02/05/25 05:56 1 STRIP Insulin Human Regular Q6HR SC 02/05/25 00:00 Dextrose 50 ml UD PRN IV 02/04/25 22:30 Sodium Chloride 10 ml Q8HR IV 02/05/25 06:00 02/05/25 05:56 10 ML Acetaminophen/ Hydrocodone Bitart 1 tab Q4HP PRN PO 02/04/25 22:30 02/05/25 05:56 1 TAB Ondansetron HCl 4 mg Q4HP PRN IV 02/04/25 22:30 Docusate Sodium 100 mg BIDPRN PRN PO 02/04/25 22:30 Acetaminophen 650 mg Q6HP PRN PO 02/04/25 22:30 Morphine Sulfate 2 mg Q4HPRN PRN IV 02/04/25 22:30 Nitroglycerin 0.4 mg Q5MINP PRN SL 02/04/25 22:30 Morphine Sulfate 2 mg Q30M PRN IV 02/04/25 22:30 Pantoprazole Sodium 40 mg DAILY IV 02/05/25 10:00 02/05/25 10:08 40 MG Laboratory Results Laboratory Tests 02/05/25 04:51 Chemistry Test 02/05/25 04:51 Albumin 3.4 g/dL (3.2-4.8) Calcium Level 8.1 mg/dL (8.7-10.4) L Total Protein 5.9 g/dL (5.7-8.2) LFT Test 02/05/25 04:51 Alanine Aminotransferase (ALT) 19 U/L (7-40) Alkaline Phosphatase 64 U/L (46-116) Aspartate Amino Transferase (AST) 16 U/L (13-40) Total Bilirubin 0.5 mg/dL (0.2-1.0) Labs and/or images reviewed: Labs reviewed by me, Image(s) reviewed by me Assessment/Plan Assessment/Plan Intractable abdominal pain Urinary tract infection Acute cystitis without hematuria Enteritis: Rocephin Flagyl History of thyroid cancer status post thyroidectomy Hypertension Diabetes RN Norberto at bedside Time spent 35 minutes Plan discussed with: Patient Date of Service: Feb 05, 2025 Billing Provider: RUSS LIRA MD Common Visit Codes: [id number] INP/OBS CARE(HIGH) RUSS LIRA MD Feb 05, 2025 12:09
[2025-02-05] MEDS: LACTATED RINGER'S 1,000 ML IV SCH (20:00)
[2025-02-06] VITALS (7 sets, daily range): BP systolic 109–126; BP diastolic 84–93; PULSE 58–80; RESP 17–20; TEMP 97.8–98.3; O2SAT 93–100
--- NOTE | 2025-02-06 09:59 | DVHPN2 ---
Reviewed: Care Plan, H&P, Labs, Medications, Previous Orders, Radiology Changes from previous H/P or p: No Changes Eyes: No Pain, No Vision change, No Conjunctivae inflammation, No Eyelid inflammation, No Other, No Redness ENT: No Ear pain, No Ear discharge, No Nose pain, No Nose discharge, No Nose congestion, No Mouth pain, No Mouth swelling, No Throat pain, No Throat swelling, No Other Cardiovascular: No Chest Pain, No Palpitations, No Orthopnea, No Paroxysmal Noc. Dyspnea, No Edema, No Lt Headedness, No Other Respiratory: No Cough, No Dry, No Shortness of breath, No SOB with excertion, No Wheezing, No Hemoptysis, No Pleuritic Pain, No Sputum, No Other Gastrointestinal: Nausea, Vomiting, Abdominal Pain; No Diarrhea, No Constipation, No Melena, No Hematochezia, No Other Genitourinary: No Dysuria, No Frequency, No Incontinence, No Hematuria, No Retention, No Other Musculoskeletal: No other, No neck pain, No shoulder pain, No arm pain, No back pain, No hand pain, No leg pain, No foot pain Skin: No Rash, No Lesions, No Jaundice, No Bruising, No Other Objective Vitals Vital Signs Date Time Temp Pulse Resp B/P (MAP) Pulse Ox O2 Delivery O2 Flow Rate FiO2 02/06/25 05:00 97.8 65 18 121/93 (102) 96 97.8 02/05/25 20:10 Room Air* 0 21 Intake/Output Intake and Output 02/06/25 07:00 Intake Total 1030 ml Balance 1030 ml Intake Oral 780 ml IV Total 250 ml # Voids 6 Medications Current Medications Medications Dose Ordered Sig/Dave Route Start Time Stop Time Status Last Admin Dose Admin Ceftriaxone Sodium 50 ml @ 100 mls/hr DAILY@2200 IV 02/05/25 22:00 02/05/25 21:47 100 MLS/HR Metronidazole 100 ml @ 100 mls/hr Q8HR IV 02/05/25 06:00 02/06/25 06:01 100 MLS/HR Diagnostic Test (Pha) 1 strip Q6HR 02/05/25 00:00 02/06/25 06:01 1 STRIP Insulin Human Regular Q6HR SC 02/05/25 00:00 Dextrose 50 ml UD PRN IV 02/04/25 22:30 Sodium Chloride 10 ml Q8HR IV 02/05/25 06:00 02/06/25 06:01 10 ML Acetaminophen/ Hydrocodone Bitart 1 tab Q4HP PRN PO 02/04/25 22:30 02/05/25 21:47 1 TAB Ondansetron HCl 4 mg Q4HP PRN IV 02/04/25 22:30 Docusate Sodium 100 mg BIDPRN PRN PO 02/04/25 22:30 Acetaminophen 650 mg Q6HP PRN PO 02/04/25 22:30 Morphine Sulfate 2 mg Q4HPRN PRN IV 02/04/25 22:30 Nitroglycerin 0.4 mg Q5MINP PRN SL 02/04/25 22:30 Morphine Sulfate 2 mg Q30M PRN IV 02/04/25 22:30 Pantoprazole Sodium 40 mg DAILY IV 02/05/25 10:00 02/05/25 10:08 40 MG Lactated Ringer's 1,000 ml @ 150 mls/hr Q6H40M IV 02/05/25 20:00 02/06/25 02:40 150 MLS/HR Laboratory Results Laboratory Tests 02/05/25 04:51 Microbiology Microbiology Date/Time Source Procedure Growth Status 02/05/25 04:25 Nose MRSA Screen - Final Complete Labs and/or images reviewed: Labs reviewed by me, Image(s) reviewed by me Assessment/Plan Assessment/Plan Intractable abdominal pain Urinary tract infection: Urine cultures pending: Continue Rocephin Acute cystitis without hematuria Enteritis: Rocephin Flagyl History of thyroid cancer status post thyroidectomy Hypertension Diabetes Status post hysterectomy RN Norberto at bedside Time spent 35 minutes Plan discussed with: Patient My Orders Orders - RUSS LIRA MD Procedure Category Date Status Time Initiate Vte JASWANT 02/05/25 In Process Prophylaxis 18:41 Lactated Ringer's PHA 02/05/25 In Process 20:00 Date of Service: Feb 06, 2025 Billing Provider: RUSS LIRA MD Common Visit Codes: [id number] INP/OBS CARE(HIGH) RUSS LIRA MD Feb 06, 2025 09:59
[2025-02-06] MEDS: ONDANSETRON HCL 4 MG/2 ML VIAL IV PRN (17:50)
[2025-02-07 01:00] VITALS: BP 112/81; PULSE 71; RESP 17; TEMP 98.3; O2SAT 96
[2025-02-07 05:00] VITALS: BP 120/86; PULSE 69; RESP 18; TEMP 98.3; O2SAT 98
[2025-02-07 07:02] LABS: Hematocrit 36.2 % (36.0-46.0); Hemoglobin 12.6 g/dL (12.2-16.2); Mean Corpuscular Hemoglobin 30.7 pg (28.0-32.0); Mean Corpuscular Volume 88.5 fL (80.0-100.0); Nucleated Red Blood Cells % 0.2 %
[2025-02-07 08:00] VITALS: PULSE 75; RESP 18; O2SAT 95
[2025-02-07 09:00] VITALS: BP 105/77; PULSE 63; RESP 16; TEMP 98.2; O2SAT 97
[2025-02-07] MEDS ORDERED: LEVO500T91 PO (09:48)
[2025-02-07] MEDS ORDERED: METR-344 PO (09:48)
--- NOTE | 2025-02-07 09:49 | DVHPN2 ---
Reviewed: Care Plan, H&P, Labs, Medications, Previous Orders, Radiology Changes from previous H/P or p: No Changes Eyes: No Pain, No Vision change, No Conjunctivae inflammation, No Eyelid inflammation, No Other, No Redness ENT: No Ear pain, No Ear discharge, No Nose pain, No Nose discharge, No Nose congestion, No Mouth pain, No Mouth swelling, No Throat pain, No Throat swelling, No Other Cardiovascular: No Chest Pain, No Palpitations, No Orthopnea, No Paroxysmal Noc. Dyspnea, No Edema, No Lt Headedness, No Other Respiratory: No Cough, No Dry, No Shortness of breath, No SOB with excertion, No Wheezing, No Hemoptysis, No Pleuritic Pain, No Sputum, No Other Gastrointestinal: Nausea, Vomiting, Abdominal Pain; No Diarrhea, No Constipation, No Melena, No Hematochezia, No Other Genitourinary: No Dysuria, No Frequency, No Incontinence, No Hematuria, No Retention, No Other Musculoskeletal: No other, No neck pain, No shoulder pain, No arm pain, No back pain, No hand pain, No leg pain, No foot pain Skin: No Rash, No Lesions, No Jaundice, No Bruising, No Other Objective Vitals Vital Signs Date Time Temp Pulse Resp B/P (MAP) Pulse Ox O2 Delivery O2 Flow Rate FiO2 02/07/25 05:00 98.3 69 18 120/86 (97) 98 98.3 02/06/25 20:20 Room Air* 0 21 Intake/Output Intake and Output 02/07/25 07:00 Intake Total 1590 ml Balance 1590 ml Intake Oral 1340 ml IV Total 250 ml # Voids 10 Medications Current Medications Medications Dose Ordered Sig/Dave Route Start Time Stop Time Status Last Admin Dose Admin Ceftriaxone Sodium 50 ml @ 100 mls/hr DAILY@2200 IV 02/05/25 22:00 02/06/25 21:50 100 MLS/HR Metronidazole 100 ml @ 100 mls/hr Q8HR IV 02/05/25 06:00 02/07/25 06:26 100 MLS/HR Diagnostic Test (Pha) 1 strip Q6HR 02/05/25 00:00 02/07/25 06:07 1 STRIP Insulin Human Regular Q6HR SC 02/05/25 00:00 Dextrose 50 ml UD PRN IV 02/04/25 22:30 Sodium Chloride 10 ml Q8HR IV 02/05/25 06:00 02/07/25 06:06 10 ML Acetaminophen/ Hydrocodone Bitart 1 tab Q4HP PRN PO 02/04/25 22:30 02/06/25 11:01 1 TAB Ondansetron HCl 4 mg Q4HP PRN IV 02/04/25 22:30 02/06/25 17:50 4 MG Docusate Sodium 100 mg BIDPRN PRN PO 02/04/25 22:30 Acetaminophen 650 mg Q6HP PRN PO 02/04/25 22:30 Morphine Sulfate 2 mg Q4HPRN PRN IV 02/04/25 22:30 Nitroglycerin 0.4 mg Q5MINP PRN SL 02/04/25 22:30 Morphine Sulfate 2 mg Q30M PRN IV 02/04/25 22:30 Pantoprazole Sodium 40 mg DAILY IV 02/05/25 10:00 02/07/25 09:17 40 MG Lactated Ringer's 1,000 ml @ 150 mls/hr Q6H40M IV 02/05/25 20:00 02/07/25 03:26 150 MLS/HR Laboratory Results Laboratory Tests 02/05/25 04:51 02/07/25 06:13 Microbiology Microbiology Date/Time Source Procedure Growth Status 02/05/25 04:25 Nose MRSA Screen - Final Complete 02/04/25 23:59 Voided Urine Urine Culture - Preliminary Resulted Labs and/or images reviewed: Labs reviewed by me, Image(s) reviewed by me Assessment/Plan Assessment/Plan Intractable abdominal pain, resolved Urinary tract infection: Urine cultures negative: Treated with Rocephin Acute cystitis without hematuria Acute Enteritis: Rocephin Flagyl patient feels History of thyroid cancer status post thyroidectomy Hypertension Diabetes Status post hysterectomy RN Chana at bedside Patient feels better and wants to go home Time spent 35 minutes Plan discussed with: Patient My Orders Orders - RUSS LIRA MD Procedure Category Date Status Time Urinalysis LAB 02/06/25 Logged 09:55 Date of Service: Feb 07, 2025 Billing Provider: RUSS LIRA MD Common Visit Codes: [id number] INP/OBS CARE(HIGH) RUSS LIRA MD Feb 07, 2025 09:49
[2025-02-07] MEDS ORDERED: HYDR-4902 PO (09:51)
[2025-02-07 11:06] VITALS: BP 128/77; PULSE 68; RESP 18; TEMP 36.8; O2SAT 95
--- NOTE | 2025-02-08 08:15 | DVHDS2 ---
Discharge Summary Date of Admission Feb 04, 2025 at 22:25 Date of Discharge: Feb 07, 2025 Admitting Diagnosis Abdominal pain Wounds: None Labs/Diagnostic Data: Laboratory Results Test 02/07/25 06:13 02/07/25 05:59 02/05/25 04:51 White Blood Count 2.9 10^3/uL (4.4-10.8) Red Blood Count 4.09 10^6/uL (4.0-5.20) Hemoglobin 12.6 g/dL (12.2-16.2) Hematocrit 36.2 % (36.0-46.0) Mean Corpuscular Volume 88.5 fL (80.0-100.0) Mean Corpuscular Hemoglobin 30.7 pg (28.0-32.0) Mean Corpuscular Hemoglobin Concent 34.7 g/dL (32.0-36.0) Red Cell Distribution Width 13.4 % (11.8-14.3) Platelet Count 221 10^3/uL (140-450) Mean Platelet Volume 8.3 fL (6.9-10.8) Neutrophils (%) (Auto) 38.3 % (37.0-80.0) Lymphocytes (%) (Auto) 50.5 % (10.0-50.0) Monocytes (%) (Auto) 7.5 % (0.0-12.0) Eosinophils (%) (Auto) 3.0 % (0.0-7.0) Basophils (%) (Auto) 0.7 % (0.0-2.0) Neutrophils # (Auto) 1.1 10 ^3/uL (1.6-8.6) Lymphocytes # (Auto) 1.5 10 ^3/uL (0.4-5.4) Monocytes # (Auto) 0.2 10 ^3/uL (0-1.3) Eosinophils # (Auto) 0.1 10 ^3/uL (0-0.8) Basophils # (Auto) 0 10 ^3/uL (0-0.2) Nucleated Red Blood Cells 0.2 % POC Glucose 77 mg/dl (70-106) Sodium Level 145 mmol/L (136-145) Potassium Level 3.7 mmol/L (3.5-5.1) Chloride Level 111 mmol/L (98-107) Carbon Dioxide Level 24 mmol/L (20-31) Anion Gap 10 (5-15) Blood Urea Nitrogen 10 mg/dL (9-23) Creatinine 0.65 mg/dL (0.550-1.02) Glomerular Filtration Rate Calc 106 mL/min (>90) BUN/Creatinine Ratio 15.4 (10.0-20.0) Serum Glucose 70 mg/dL (74-106) Calcium Level 8.1 mg/dL (8.7-10.4) Total Bilirubin 0.5 mg/dL (0.2-1.0) Aspartate Amino Transferase (AST) 16 U/L (13-40) Alanine Aminotransferase (ALT) 19 U/L (7-40) Alkaline Phosphatase 64 U/L (46-116) Total Protein 5.9 g/dL (5.7-8.2) Albumin 3.4 g/dL (3.2-4.8) Other Laboratory Tests 02/07/25 06:13 02/05/25 04:51 Brief Hx & Hospital Course: Admitted for abdominal pain found to have UTI with cystitis without hematuria and colitis treated with Rocephin and Flagyl. History of thyroid cancer status post thyroidectomy hypertension and diabetes. The patient feels better and asymptomatic with stable vital signs and afebrile at the time of discharge tolerating regular diet. Discharged home. Prescription for Levaquin Flagyl transmitted to pharmacy Consults/Reason for consult None Operations or Procedures CT abdomen pelvis without contrast Condition at Discharge: Fair Final Diagnosis/Problems List Intractable abdominal pain Urinary tract infection: Urine cultures negative: Treated with Rocephin Acute cystitis without hematuria Acute Enteritis: Rocephin Flagyl patient feels History of thyroid cancer status post thyroidectomy Hypertension Diabetes Status post hysterectomy Discharge Disposition: Home Discharge Instruct/Medications Diet: Regular Activity: Light activity Follow Up/Referral: Follow up with the primary Dr Dr. Erazo Use medications as prescribed Medications: Levaquin Flagyl Mas[place] Transmitted to pharmacy Scheduled Amlodipine Besylate-Benazepril (Lotrel), Unknown Dose PO DAILY, (Reported) Benzocaine-Menthol (Mouth-Thro (Cepacol Sore Throat), 1 CAMILO MT UD Cyclobenzaprine Hcl (Cyclobenzaprine Hcl), 10 MG PO HS Escitalopram Oxalate (Escitalopram Oxalate), 1 DAILY, (Reported) Ibuprofen Micronized (Ibuprofen), 800 MG PO TIDWM Levofloxacin Hemihydrate (Levaquin 500 Mg), 1 TAB PO DAILY Levothyroxine Sodium (Synthroid Tablet), 1 TAB PO DAILY, (Reported) Levothyroxine Sodium (Levothyroxine Sodium), 1 DAILY, (Reported) Lidocaine Hcl (Lidocaine Viscous), 15 ML MT TID Metformin Hydrochloride (Metformin Hcl), 500 MG PO DAILY, (Reported) Metronidazole (Flagyl), 500 MG PO BID Metronidazole (Flagyl), 1 TAB PO TID Nitrofurantoin Monohydrate Mac (Macrobid), 100 MG PO BID Nitrofurantoin Monohydrate Mac (Macrobid), 100 MG PO BID Nitrofurantoin Monohydrate Mac (Macrobid), 100 MG PO BID Prednisone (Prednisone), 40 MG PO DAILY Tramadol Hcl (Ultram), 1 TAB PO BID Scheduled PRN Hydrocodone-Acetaminophen (Hydrocodone Bitartrate/AC 5-325 mg), 1 TAB PO QID PRN Loperamide Hcl (Imodium), 2 MG PO Q4HP PRN Ondansetron HCl (Ondansetron Hydrochloride), 8 MG PO Q6HP PRN Miscellaneous Medications Insulin Degludec (Tresiba Flextouch), SC, (Reported) Tirzepatide (Mounjaro), (Reported) 35 (Time taken for discharge summary 35 minutes) Discharge Statement: "Patient was advised to return to the ER or call 911 if any headaches, dizziness, shortness of breath, chest pain, abdominal pain, bleeding, fevers, or worsening of medical condition. Patient was counseled about treatment plan, medications, possible side effects, patientverbalized understanding. All questions were answered to the best of my ability. This discharge took greater then 30 minutes in planning, reviewing documentation, counseling the patient, and discussing with other team members." ASSESSMENT ASSESSMENT Hospital Course Improved Assessment Intractable abdominal pain Urinary tract infection: Urine cultures negative: Treated with Rocephin Acute cystitis without hematuria Acute Enteritis: Rocephin Flagyl patient feels History of thyroid cancer status post thyroidectomy Hypertension Diabetes Status post hysterectomy Date of Service: Feb 08, 2025 Billing Provider: RUSS LIRA MD Common Visit Codes: [id number] INP/OBS CARE(HIGH) RUSS LIRA MD Feb 08, 2025 08:15
== END 2025-02-07 13:30 | disposition home or self-care (01) | DRG 372 ==
LOC: EDBD 20:58 → ER 20:59 → OVERFLOW 22:25 → CENTRAL 23:11
PROVIDERS: ADMIT Family Medicine; ATTEND Family Medicine
DX: A04.9 Bacterial intestinal infection, unspecified (principal); N30.00 Acute cystitis without hematuria; I10 Essential (primary) hypertension; E89.0 Postprocedural hypothyroidism; E11.9 Type 2 diabetes mellitus without complications; Z90.49 Acquired absence of other specified parts of digestive tract; Z90.710 Acquired absence of both cervix and uterus; Z85.850 Personal history of malignant neoplasm of thyroid
CPT/HCPCS: 36415; 80053; 82962; 85025; 87081; 87086; 96374; 96375; 99291; 99292; G0378; J2405; J2470; J3490